=== PATIENT | male | born 1990 | race American Indian/Alaskan Native ===

== ENCOUNTER 2019-09-26 14:58 | Inpatient (IN) | payer OTHER ==
--- NOTE | 2019-09-26 17:21 | Event Note ---
ED Screening Note ED Screening Note: states he went to the hospital in june and was diagnosed with PNA last week began have productive cough no fever mild SOB +congestion no PMHx no allergies to meds +smoker, 1-2 cigarettes a day no ETOH +marijuana This initial assessment/diagnostic orders/clinical plan/treatment(s) is/are subject to change based on patients health status, clinical progression and re- assessment by fellow clinical providers in the ED. Further treatment and workup at subsequent clinical providers discretion. Patient/guardian urged not to elope from the ED as their condition may be serious if not clinically assessed and managed. Initial orders include: CXR
--- NOTE | 2019-09-26 19:25 | XRay Report ---
CHEST 2 VIEWS 1858 INDICATION / CLINICAL INFORMATION: productive cough for a week COMPARISON: None available. FINDINGS: SUPPORT DEVICES: None. HEART / MEDIASTINUM: No significant abnormality. LUNGS / PLEURA: Moderate focal area of infiltrate is seen in the right upper lobe anterior and latera l to the right hilum. There is an appearance of infiltrate either surrounding some bullous change in this region or perhaps cavitation. No air-fluid levels are seen. Mild patchy density is seen in the r ight middle lobe. There also appears to be left perihilar infiltrate. An area of apparent cavitation is seen in the far posterior aspect of the left midlung, probably in the extreme upper portion of the superior segment of the left lower lobe though possibly in the left upper lobe. This area of apparen t cavitation measures 4.5 cm in diameter and has a thick walled appearance. No air-fluid level is see n. No pleural effusions are noted. No pneumothorax. ADDITIONAL FINDINGS: No significant additional findings. IMPRESSION: Bilateral areas of infiltrate are seen with an appearance suggesting cavitation though I do not see obvious air-fluid levels to suggest lung abscess. Possibly this pattern could result from infiltrate surrounding bullous change but in this young patient without other evidence of chronic pul monary disease this would appear unlikely. Particularly on the left I believe a true cavitary lesion is much more likely. Findings raise the question of an atypical infection which could include active tuberculosis. I do not see other evidence of granulomatous disease exposure. Neoplastic disease is co nsidered far less likely in this young patient. COMMUNICATION: Time of Communication: 1818 Central daylight time Licensed Practitioner Receiving Report: Dr. Durán in the emergency department Signer Name: Sriram Butler MD Signed: 09/26/2019 7:21 PM Workstation Name: [id number]
[2019-09-26 20:21] LABS: Basophils # (Auto) 0.1 K/mm3 (0.0-0.1); Basophils % (Auto) 0.6 % (0.0-1.8); Eosinophils # (Auto) 0.1 K/mm3 (0.0-0.4); Eosinophils % (Auto) 0.8 % (0.0-4.3); Hematocrit 42.5 % (35.5-45.6); Hemoglobin 13.9 gm/dl (11.8-15.2); Lymphocytes % (Auto) 11.3 % (13.4-35.0); Mean Corpuscular HGB Conc 33 % (32-34); Mean Corpuscular Volume 84 fl (84-94); Monocytes # (Auto) 0.8 K/mm3 (0.0-0.8); Monocytes % (Auto) 9.1 % (0.0-7.3); Platelet Count 344 K/mm3 (140-440); Red Blood Count 5.08 M/mm3 (3.65-5.03); Red Cell Distribution Width 13.5 % (13.2-15.2)
--- NOTE | 2019-09-26 20:40 | Emergency Department Report ---
- General Chief Complaint: Upper Respiratory Infection Stated Complaint: COLD SYMPTOMS Time Seen by Provider: 09/26/19 17:19 Source: patient Mode of arrival: Ambulatory Limitations: No Limitations - History of Present Illness Initial Comments: 29-year-old male presents to ED with cough 4 days. Patient states he was incarcerated for 3 months and recently released from long term. He states he was diagnosed with pneumonia 3 weeks ago while in long term and received 7 days of antibiotics. Patient states a repeat chest xray was done and he was told that the pneumonia was improving. Pt was released from long term 3 days ago. States cough returned approx 4 days ago so he came to the ER. Patient denies history of TB. Reports he has been incarcerated previously as well. Patient denies any fever or chills, night sweats, or hemoptysis. MD Complaint: cough -: week(s) (3) Severity: moderate Consistency: intermittent Improves With: other (antibiotics) Worsens With: nothing Associated Symptoms: denies: fever, chills, chest pain, shortness of breath, right sweats Treatments Prior to Arrival: antibiotics - Related Data Allergies Allergy/AdvReac Type Severity Reaction Status Date / Time No Known Allergies Allergy Verified 09/26/19 15:53 ED Review of Systems ROS: Stated complaint: COLD SYMPTOMS Other details as noted in HPI Comment: All other systems reviewed and negative Constitutional: denies: chills, fever Respiratory: cough. denies: shortness of breath Cardiovascular: denies: chest pain Gastrointestinal: denies: nausea, vomiting ED Past Medical Hx - Past Medical History Previous Medical History?: No - Surgical History Past Surgical History?: Yes Additional Surgical History: pelvis fracture - Social History Smoking Status: Current Every Day Smoker ED Physical Exam - General Limitations: No Limitations ED Course Vital Signs 09/26/19 09/27/19 15:49 00:54 Temperature 98.6 F Pulse Rate 103 H 102 H Respiratory 20 19 Rate Blood Pressure 117/88 120/67 [Right] O2 Sat by Pulse 98 99 Oximetry - Consultations Consultation #1: 09/26/19 21:01 Spoke w/ Dr Rodriguez, infectious disease. Recommends rocephin and flagyl for antibiotic therapy. ED Medical Decision Making - Lab Data Result diagrams: 09/26/19 20:03 09/26/19 20:03 - Radiology Data Radiology results: report reviewed, image reviewed - Medical Decision Making 29 yo M w/ possible active TB. Pt placed in airborne precautions. I spoke w/ Dr Rodriguez, ID, who recommended rocephin, flagyl, and noncontrast chest CT. Chest CT confirms bilateral infiltrates and cavitary lesions. Labs and vitals are normal. Pt is is no resp distress, O2 sats are normal. Explained to pt need to stay for admission and he agrees. Pt will be admitted by hospitalist, Dr Galvan, for further management. - Differential Diagnosis URI, flu, pneumonia, tuberculosis Critical care attestation.: If time is entered above; I have spent that time in minutes in the direct care of this critically ill patient, excluding procedure time. ED Disposition Clinical Impression: Pneumonia Disposition: DC-09 OP ADMIT IP TO THIS HOSP Is pt being admited?: Yes Condition: Stable Time of Disposition: 01:03
[2019-09-26 20:45] LABS: Alanine Aminotransferase 6 units/L (7-56); BUN/Creatinine Ratio 14; Blood Urea Nitrogen 10 mg/dL (9-20); Calcium 9.2 mg/dL (8.4-10.2); Hemolysis Index 45
--- NOTE | 2019-09-26 20:54 | Emergency Department Report ---
- General Chief Complaint: Upper Respiratory Infection Stated Complaint: COLD SYMPTOMS Time Seen by Provider: 09/26/19 17:19 Source: patient Mode of arrival: Ambulatory Limitations: No Limitations - History of Present Illness MD Complaint: cough - Related Data Allergies Allergy/AdvReac Type Severity Reaction Status Date / Time No Known Allergies Allergy Verified 09/26/19 15:53 ED Review of Systems ROS: Stated complaint: COLD SYMPTOMS Other details as noted in HPI ED Past Medical Hx - Past Medical History Previous Medical History?: No - Surgical History Past Surgical History?: Yes Additional Surgical History: pelvis fracture - Social History Smoking Status: Current Every Day Smoker ED Physical Exam - General Limitations: No Limitations ED Course Vital Signs 09/26/19 09/26/19 09/26/19 15:49 20:31 21:01 Temperature 98.6 F Pulse Rate 103 H 88 85 Respiratory 20 19 20 Rate Blood Pressure 124/81 121/77 Blood Pressure 117/88 [Right] O2 Sat by Pulse 98 97 98 Oximetry 09/26/19 09/26/19 09/26/19 22:01 22:31 23:01 Temperature Pulse Rate 94 H 95 H 86 Respiratory 15 13 22 Rate Blood Pressure 116/69 132/92 121/79 Blood Pressure [Right] O2 Sat by Pulse 99 100 99 Oximetry 09/26/19 09/27/19 09/27/19 23:31 00:01 00:31 Temperature Pulse Rate 91 H 94 H 95 H Respiratory 26 H 21 23 Rate Blood Pressure 113/83 130/78 167/88 Blood Pressure [Right] O2 Sat by Pulse 99 94 99 Oximetry 09/27/19 09/27/19 09/27/19 00:54 01:01 01:31 Temperature Pulse Rate 102 H 95 H 94 H Respiratory 19 16 17 Rate Blood Pressure 117/69 122/66 Blood Pressure 120/67 [Right] O2 Sat by Pulse 99 95 96 Oximetry ED Medical Decision Making - Lab Data Result diagrams: 09/26/19 20:03 09/26/19 20:03 Critical care attestation.: If time is entered above; I have spent that time in minutes in the direct care of this critically ill patient, excluding procedure time. ED Disposition Clinical Impression: Pneumonia Disposition: DC- OP ADMIT IP TO THIS HOSP Condition: Stable
[2019-09-26] MEDS ORDERED: cefTRIAXone/NS 1 GM/50 ML 1 GM/50 ML BAG IV ONE (20:59)
[2019-09-26] MEDS ORDERED: metroNIDAZOLE/NS 500 MG/100 ML 500 MG/100 ML BAG IV ONE (21:00)
--- NOTE | 2019-09-26 22:18 | Cat Scan Report ---
CT CHEST WITHOUT CONTRAST INDICATION: cough, abnormal cxr CONTRAST: Without IV COMPARISON: PA and lateral chest x-ray tonight All CT scans at this location are performed using CT dose reduction for ALARA by means of automated e xposure control. FINDINGS: No significant axillary or chest wall abnormalities are seen. Visualized portions of the up per abdomen show no significant abnormalities. No mediastinal or hilar masses are obvious. No pleural effusions are seen. No pneumothorax or pneumomediastinum are noted. Bilateral areas of nodular infiltrate are seen. This is most prominently seen in the right upper lobe laterally and includes areas of cavitation as suspected on chest x-ray. The largest cavitary area in the right upper lobe has a lumen of 18 mm with a thick wall and 4 areas of cavitation are seen in th is region. Fluid infiltrate is noted around these cavitary regions and multiple nodular densities are seen extending from this area in the right upper lobe. No air-fluid levels are seen in the areas of cavitation. A similar but larger area of cavitation is seen in the superior segment of the left lower lobe as seen on chest x-ray. This cavitary area has an inner lumen diameter 2.5 cm and also does not show air-fluid level. Thickened wall is seen. This is also surrounded to a smaller degree by multipl e nodular densities. Nodular infiltrate is also seen in the lateral aspect of the left upper lobe. Th ere is some similar nodular type infiltrate medially in the left lower lobe including an area of conf luent density near the vasculature which measures 19 mm but lacks cavitation. Anterolaterally in the right middle lobe patchy mildly nodular infiltrate is seen extending to the periphery. I do not see s ignificant infiltrate in the right lower lobe. IMPRESSION: As seen on chest x-ray there are bilateral areas of infiltrate and in the right upper lob e and superior segment of the left lower lobe cavitation is indeed present. No air-fluid levels are s een in these are not thought represent lung abscesses. The infiltrate in multiple lobes bilaterally h as a nodular type of appearance and findings are strongly worrisome for an atypical infection which c ould include active tuberculosis. This possibility was discussed earlier in the evening with Dr. Durán when the chest x-ray was obtained. Neoplasia is not excluded but would be less likely in this young patient. Signer Name: Sriram Butler MD Signed: 09/26/2019 10:14 PM Workstation Name: [id number]
--- NOTE | 2019-09-26 23:46 | History and Physical Report ---
History of Present Illness History of present illness: 29-year-old man with no medical problems comes emergency room for evaluation of cough productive of brown-yellow phlegm. Was just released from care home 3 days ago. Stated was diagnosed with pneumonia 2 to 3 weeks ago in care home and received antibiotic for 7 days, he does not know the name of the antibiotic. He states that his symptoms improved but did not completely go away. Stated that all the people in the care home had the same symptoms. He denies night sweats, weight loss blood in sputum Review Of Systems: Constitutional: no weight loss, fever, chills Ears, eyes, nose, mouth and throat: no nasal congestion, no nasal discharge, no sinus pressure, blurry vision, diplopia Neck: No neck pain or rigidity. Cardiovascular: No palpitations, chest pain Respiratory:+shortness of breath, cough Gastrointestinal: No hematochezia, abdominal pain Genitourinary : no dysuria, frequency Musculoskeletal: no muscle ache , joint pain Integumentary: no rash, no pruritis Neurological: no parathesias, focal weakness Endocrine: no cold or heat intolerance, no polyuria or polydipsia Hematologic/Lymphatic: no easy bruising, no easy bleeding, no gland swelling Allergic/Immunologic: no urticaria, no angioedema. PAST MEDICAL HISTORY: None PAST SURGICAL HISTORY: pelvic fracture SOCIAL HISTORY: Denies alcohol, +tobacco, nodrugs FAMILY HISTORY: Hypertension Medications and Allergies Allergies Allergy/AdvReac Type Severity Reaction Status Date / Time No Known Allergies Allergy Verified 09/26/19 15:53 Home Medications Medication Instructions Recorded Confirmed Last Taken Type No Known Home Medications [No 09/27/19 09/27/19 Unknown History Reported Home Medications] Exam - Constitutional Vitals: Temp Pulse Resp BP Pulse Ox 98.6 F 103 H 20 117/88 98 09/26/19 15:49 09/26/19 15:49 09/26/19 15:49 09/26/19 15:49 09/26/19 15:49 Results - Labs CBC & Chem 7: 09/27/19 09:40 09/27/19 09:40 Labs: Abnormal lab results 09/26/19 09/26/19 Range/Units 20:03 20:03 RBC 5.08 H (3.65-5.03) M/mm3 MCH 27 L (28-32) pg Lymph % (Auto) 11.3 L (13.4-35.0) % [place] % (Auto) 9.1 H (0.0-7.3) % Lymph # 1.0 L (1.2-5.4) K/mm3 Seg Neutrophils % 78.2 H (40.0-70.0) % Sodium 136 L (137-145) mmol/L Creatinine 0.7 L (0.8-1.5) mg/dL ALT 6 L (7-56) units/L Total Protein 8.7 H (6.3-8.2) g/dL - Imaging and Cardiology Chest x-ray: report reviewed CT scan - chest: report reviewed Assessment and Plan Assessment Pneumonia with cavitation, rule out TB Start Rocephin, Flagyl as suggested by infectious disease Placed on isolation, check AFP, consult infectious disease DVT prophylaxis
[2019-09-27] MEDS ORDERED: ONDANSETRON 4 MG/2 ML INJ IV PRN (05:23)
[2019-09-27] MEDS: metroNIDAZOLE/NS 500 MG/100 ML 500 MG/100 ML BAG IV SCH ×3 (07:27→21:32)
[2019-09-27] MEDS: ENOXAPARIN 40 MG/0.4 ML INJ SUB-Q SCH (09:35)
[2019-09-27] MEDS: cefTRIAXone/NS 1 GM/50 ML 1 GM/50 ML BAG IV SCH (09:35)
[2019-09-27 10:14] LABS: Hematocrit 40.7 % (35.5-45.6); Hemoglobin 13.4 gm/dl (11.8-15.2); Mean Corpuscular HGB Conc 33 % (32-34); Mean Corpuscular Volume 83 fl (84-94); Platelet Count 327 K/mm3 (140-440); Red Blood Count 4.89 M/mm3 (3.65-5.03); Red Cell Distribution Width 13.4 % (13.2-15.2)
[2019-09-27 10:21] LABS: Basophils % (Auto) 0.8 % (0.0-1.8); Eosinophils # (Auto) 0.1 K/mm3 (0.0-0.4); Eosinophils % (Auto) 1.8 % (0.0-4.3); Lymphocytes # (Auto) 0.9 K/mm3 (1.2-5.4); Lymphocytes % (Auto) 15.1 % (13.4-35.0); Monocytes # (Auto) 0.6 K/mm3 (0.0-0.8); Monocytes % (Auto) 10.7 % (0.0-7.3)
[2019-09-27 10:38] LABS: BUN/Creatinine Ratio 14; Blood Urea Nitrogen 10 mg/dL (9-20); Calcium 8.7 mg/dL (8.4-10.2); Hemolysis Index 6
--- NOTE | 2019-09-27 12:59 | Progress Note ---
Assessment and Plan 1. Pneumonia with cavitation, --rule out TB Start Rocephin, Flagyl as suggested by infectious disease Placed on isolation, check AFB, consult infectious disease 2.DVT prophylaxis On Heparin and GI prophylaxis Subjective Date of service: 09/27/19 Principal diagnosis: Pna with cavity Interval history: 29-year-old man with no medical problems comes emergency room for evaluation of cough productive of brown-yellow phlegm. Was just released from skilled nursing 3 days ago. Stated was diagnosed with pneumonia 2 to 3 weeks ago in skilled nursing and received antibiotic for 7 days, he does not know the name of the antibiotic. He states that his symptoms improved but did not completely go away. Stated that all the people in the skilled nursing had the same symptoms. He denies night sweats, weight loss blood in sputum Objective - Constitutional Vitals: Vital Signs - 12hr 09/27/19 09/27/19 09/27/19 01:01 01:31 01:41 Temperature Pulse Rate 95 H 94 H 104 H Pulse Rate [ From Monitor] Respiratory 16 17 17 Rate Blood Pressure 117/69 122/66 117/69 O2 Sat by Pulse 95 96 99 Oximetry 09/27/19 09/27/19 09/27/19 01:51 01:54 02:01 Temperature Pulse Rate 92 H 100 H Pulse Rate [ 81 From Monitor] Respiratory 17 20 19 Rate Blood Pressure 118/65 116/66 O2 Sat by Pulse 100 95 96 Oximetry 09/27/19 09/27/19 09/27/19 02:11 02:21 03:00 Temperature Pulse Rate 97 H 92 H Pulse Rate [ From Monitor] Respiratory 19 21 Rate Blood Pressure 118/65 113/56 128/82 O2 Sat by Pulse 96 93 Oximetry 09/27/19 09/27/19 09/27/19 03:02 04:53 09:26 Temperature 97.3 F L 98.3 F Pulse Rate 87 85 Pulse Rate [ From Monitor] Respiratory 20 18 Rate Blood Pressure 124/82 O2 Sat by Pulse 95 97 97 Oximetry General appearance: Present: no acute distress, well-nourished - EENT Eyes: PERRL, EOM intact ENT: hearing intact, clear oral mucosa Ears: bilateral: normal - Neck Neck: supple, normal ROM - Respiratory Respiratory effort: normal Respiratory: bilateral: CTA - Breasts Breasts: normal - Cardiovascular Heart rate: 78 Rhythm: regular Heart Sounds: Present: S1 & S2. Absent: gallop, rub Extremities: pulses intact, No edema, normal color, Full ROM - Gastrointestinal General gastrointestinal: Present: soft, non-tender, non-distended, normal bowel sounds - Genitourinary Male genitourinary: normal - Integumentary Integumentary: clear, warm, dry - Musculoskeletal Musculoskeletal: 1, strength equal bilaterally - Neurologic Neurologic: moves all extremities - Psychiatric Psychiatric: memory intact, appropriate mood/affect, intact judgment & insight - Allied health notes Allied health notes reviewed: nursing, case management - Labs CBC & Chem 7: 09/27/19 09:40 09/27/19 09:40 Labs: Abnormal lab results 09/26/19 09/26/19 09/27/19 Range/Units 20:03 20:03 09:40 RBC 5.08 H (3.65-5.03) M/mm3 MCV 83 L (84-94) fl MCH 27 L 27 L (28-32) pg Lymph % (Auto) 11.3 L (13.4-35.0) % [place] % (Auto) 9.1 H 10.7 H (0.0-7.3) % Lymph # 1.0 L 0.9 L (1.2-5.4) K/mm3 Seg Neutrophils % 78.2 H 71.6 H (40.0-70.0) % Sodium 136 L (137-145) mmol/L Creatinine 0.7 L (0.8-1.5) mg/dL Glucose (75-100) mg/dL ALT 6 L (7-56) units/L Total Protein 8.7 H (6.3-8.2) g/dL 09/27/19 Range/Units 09:40 RBC (3.65-5.03) M/mm3 MCV (84-94) fl MCH (28-32) pg Lymph % (Auto) (13.4-35.0) % [place] % (Auto) (0.0-7.3) % Lymph # (1.2-5.4) K/mm3 Seg Neutrophils % (40.0-70.0) % Sodium (137-145) mmol/L Creatinine 0.7 L (0.8-1.5) mg/dL Glucose 160 H (75-100) mg/dL ALT (7-56) units/L Total Protein (6.3-8.2) g/dL
[2019-09-27] MEDS ORDERED: HEPARIN 5,000 UNIT/1 ML VIAL SUB-Q SCH (13:15)
--- NOTE | 2019-09-27 15:25 | Consultation ---
History of Present Illness - Reason for Consult Consult date: 09/27/19 cavitary pneumonia Requesting physician: RAJAN RIBEIRO - History of Present Illness The patient is a 29-year-old male with no significant past medical history, recent incarceration came into the emergency room yesterday with complaints of cough along with brown sputum production for the last 3-4 days. Has any fever or chills. He reports a recent diagnosis of pneumonia while he was incarcerated sometime in June 2019. Treated with antibiotics and started feeling better after that. Has any weight loss. ID was consulted for additional work up. Started on Ceftriaxone and Flagyl. Does smoke cigarettes, also smokes marijuana. Denies any IV drug use. Denies any alcohol use. Review of Systems: General: no fevers,chills or rigors HEENT: no new visual disturbance Respiratory: cough, sputum and mild shortness of breath Cardiovascular: No chest pain, syncope Gastrointestinal: No nausea, vomiting or diarrhea Genitourinary: No dysuria or hematuria Musculoskeletal: No new or worsening neck pain or back pain Neurologic: No headaches, seizures Hematologic: No easy bruising or bleeding Endocrine: No night sweats or acute weight loss Skin: negative for rash, jaundice Psychiatric: No suicidal or homicidal ideation Medications and Allergies Allergies Allergy/AdvReac Type Severity Reaction Status Date / Time No Known Allergies Allergy Verified 09/26/19 15:53 Home Medications Medication Instructions Recorded Confirmed Last Taken Type No Known Home Medications [No 09/27/19 09/27/19 Unknown History Reported Home Medications] Active Meds: Active Medications Acetaminophen (Tylenol) 650 mg PO Q4H PRN PRN Reason: Pain MILD(1-3)/Fever >100.5/JAIMES Enoxaparin Sodium (Enoxaparin) 40 mg SUB-Q QDAY [facility] Last Admin: 09/27/19 09:35 Dose: 40 mg Documented by: Metronidazole (Flagyl 500 Mg/100 Ml) 500 mg in 100 mls @ 100 mls/hr IV Q8HR S ; Protocol Last Admin: 09/27/19 13:25 Dose: 100 mls/hr Documented by: Ceftriaxone Sodium (Rocephin/Ns 1 Gm/50 Ml) 1 gm in 50 mls @ 100 mls/hr IV Q24HR [facility]; Protocol Last Admin: 09/27/19 09:35 Dose: 100 mls/hr Documented by: Ondansetron HCl (Zofran) 4 mg IV Q4H PRN PRN Reason: Nausea And Vomiting Sodium Chloride (Sodium Chloride Flush Syringe 10 Ml) 10 ml IV BID [place] Last Admin: 09/27/19 09:35 Dose: 10 ml Documented by: Sodium Chloride (Sodium Chloride Flush Syringe 10 Ml) 10 ml IV PRN PRN PRN Reason: LINE FLUSH Physical Examination - Physical Exam Narrative exam: Physical Exam: Constitutional: Alert, cooperative. No acute distress Head, Ears, Nose: Normocephalic, atraumatic. External ears, nose normal Eyes: Conjunctivae/corneas clear. No icterus. No ptosis. Neck: Supple, no meningeal signs Oral: dentition fair, no thrush Cardiovascular: S1, S2 normal. Respiratory: Good air entry, clear to auscultation bilaterally GI: Soft, non-tender; bowel sounds normal. No peritoneal signs Musculoskeletal: No pedal edema, no cyanosis. Skin: No rash or abscess Hem/Lymphatic: No palpable cervical or supraclavicular nodes. No lymphangitis Psych: Mood ok. Affect normal Neurological: Awake, alert, oriented. No gross abnormality - Constitutional Vitals: Vital Signs Temp Pulse Resp BP Pulse Ox 97.1 F L 82 18 117/59 98 09/27/19 11:52 09/27/19 11:52 09/27/19 11:52 09/27/19 11:52 09/27/19 11:52 Temperature -Last 24 Hours Temperature 97.1 F Temperature 98.3 F Temperature 97.3 F Temperature 98.6 F Results - Labs CBC & Chem 7: 09/27/19 09:40 09/27/19 09:40 Labs: Abnormal lab results 09/26/19 09/26/19 09/27/19 Range/Units 20:03 20:03 09:40 RBC 5.08 H (3.65-5.03) M/mm3 MCV 83 L (84-94) fl MCH 27 L 27 L (28-32) pg Lymph % (Auto) 11.3 L (13.4-35.0) % [place] % (Auto) 9.1 H 10.7 H (0.0-7.3) % Lymph # 1.0 L 0.9 L (1.2-5.4) K/mm3 Seg Neutrophils % 78.2 H 71.6 H (40.0-70.0) % Sodium 136 L (137-145) mmol/L Creatinine 0.7 L (0.8-1.5) mg/dL Glucose (75-100) mg/dL ALT 6 L (7-56) units/L Total Protein 8.7 H (6.3-8.2) g/dL 09/27/19 Range/Units 09:40 RBC (3.65-5.03) M/mm3 MCV (84-94) fl MCH (28-32) pg Lymph % (Auto) (13.4-35.0) % [place] % (Auto) (0.0-7.3) % Lymph # (1.2-5.4) K/mm3 Seg Neutrophils % (40.0-70.0) % Sodium (137-145) mmol/L Creatinine 0.7 L (0.8-1.5) mg/dL Glucose 160 H (75-100) mg/dL ALT (7-56) units/L Total Protein (6.3-8.2) g/dL - Imaging and Cardiology Chest x-ray: report reviewed, image reviewed (cavitary lesions) CT scan - chest: report reviewed, image reviewed (b/l cavitary infiltrates) Assessment and Plan Cultures: 09/26/2019 blood culture: In process A/P: 29-year-old male with no significant past medical history, recent incarceration admitted with: #Bilateral cavitary pneumonia: Patient recently incarcerated with recent pneumonia. Findings not typical of septic emboli but follow blood cultures. Rule out TB. Dentition is fair, no h/o alcohol abuse to suggest aspiration and lung abscess. Does smoke cigarettes, also smokes marijuana. Denies any IV drug use. Recs: Airborne isolation Sputum culture AFB smear and culture 3 TB IGRA empiric Ceftriaxone and Flagyl for now f/u blood cultures TTE ordered Angela Rodriguez MD, FACP [facility] ([facility] C: [phone] O: [phone] F: [phone]
[2019-09-27] MEDS ORDERED: guaiFENesin 100 MG/5 ML ORAL LIQD PO PRN (22:15)
[2019-09-28] MEDS: metroNIDAZOLE/NS 500 MG/100 ML 500 MG/100 ML BAG IV SCH ×2 (05:20→18:00)
[2019-09-28] MEDS: ENOXAPARIN 40 MG/0.4 ML INJ SUB-Q SCH (11:05)
[2019-09-28] MEDS: cefTRIAXone/NS 1 GM/50 ML 1 GM/50 ML BAG IV SCH (11:05)
--- NOTE | 2019-09-28 12:52 | Progress Note ---
Assessment and Plan Cultures: 09/26/2019 blood culture: no growth thus far A/P: 29-year-old male with no significant past medical history, recent incarceration admitted with: #Bilateral cavitary pneumonia: Patient recently incarcerated with recent pneumonia. Findings not typical of septic emboli but follow blood cultures. Rule out TB. Dentition is fair, no h/o alcohol abuse to suggest aspiration and lung abscess. Does smoke cigarettes, also smokes marijuana. Denies any IV drug use. TTE unremarkable. Recs: continue airborne isolation f/u sputum culture f/u AFB smear and culture 3 TB IGRA ordered but not collected yet continue empiric Ceftriaxone and Flagyl for now Angela Rodriguez MD, FACP [facility] ([facility] C: [phone] O: [phone] F: [phone] Subjective Date of service: 09/28/19 Principal diagnosis: Pna with cavity Interval history: No fever. no cough. Feels well. Objective - Exam Narrative Exam: Physical Exam: Constitutional: Alert, cooperative. No acute distress Head, Ears, Nose: Normocephalic, atraumatic. External ears, nose normal Eyes: Conjunctivae/corneas clear. No icterus. No ptosis. Neck: Supple, no meningeal signs Cardiovascular: S1, S2 normal. Respiratory: Good air entry, clear to auscultation bilaterally GI: Soft, non-tender; bowel sounds normal. No peritoneal signs Musculoskeletal: No pedal edema, no cyanosis. Skin: No rash or abscess Hem/Lymphatic: No palpable cervical or supraclavicular nodes. No lymphangitis Psych: Mood ok. Affect normal Neurological: Awake, alert, oriented. No gross abnormality - Constitutional Vitals: Vital Signs Temp Pulse Resp BP Pulse Ox 98.1 F 73 18 122/71 94 09/28/19 05:41 09/28/19 05:41 09/28/19 05:41 09/28/19 05:41 09/28/19 05:41 Temperature -Last 24 Hours Temperature 98.1 F Temperature 98.6 F Temperature 97.5 F - Labs CBC & Chem 7: 09/27/19 09:40 09/27/19 09:40
[2019-09-28] MEDS: ETHAMBUTOL 400 MG TAB PO SCH (17:57)
[2019-09-28] MEDS: ISONIAZID 300 MG TAB PO SCH (17:58)
[2019-09-28] MEDS: PYRIDOXINE 50 MG TAB PO SCH (17:59)
[2019-09-28] MEDS: PYRAZINAMIDE 500 MG TAB PO SCH (17:59)
--- NOTE | 2019-09-28 18:17 | Progress Note ---
Assessment and Plan Assessment and plan: 29-year-old man with no medical problems comes emergency room for evaluation of cough productive of brown-yellow phlegm. [facility]. Stated was diagnosed with pneumonia 2 to 3 weeks ago in [facility] and received antibiotic for 7 days, he does not know the name of the antibiotic. He states that his symptoms improved but did not completely go away. Stated that all the people in the [facility] had the same symptoms. He denies night sweats, weight loss blood in sputum 1. Pneumonia with cavitation, --rule out TB called by Micro about positve AFB Discussed with ID will Start TB meds Patient moved to Airborne isolation room. TB IGRA Rocephin, Flagyl as suggested by infectious disease Placed on isolation, check AFB, consult infectious disease 2.DVT prophylaxis On Heparin and GI prophylaxis History Interval history: Patient seen and examined, resting comfortable, no new complaints Hospitalist Physical - Physical exam Narrative exam: VITAL SIGNS: Reviewed. GENERAL: The patient appears normally developed, Vital signs as documented. HEAD: No signs of head trauma. EYES: Pupils are equal. Extraocular motions intact. EARS: Hearing grossly intact. MOUTH: Oropharynx is normal. NECK: No adenopathy, no JVD. CHEST: Chest with clear breath sounds bilaterally. No wheezes, rales, or rhonchi. CARDIAC: Regular rate and rhythm. S1 and S2, without murmurs, gallops, or rubs. VASCULAR: No Edema. Peripheral pulses normal and equal in all extremities. ABDOMEN: Soft, non tender and non distended. No rebound or guarding, and no masses palpated. Bowel Sounds normal. MUSCULOSKELETAL: Good range of motion of all major joints. Extremities without clubbing, cyanosis or edema. NEUROLOGIC EXAM: Alert and oriented x 3 No focal sensory or strength deficits. Speech normal. Follows commands. PSYCHIATRIC: Mood normal. SKIN: detial exam as documented in skin assessment - Constitutional Vitals: Temp Pulse Resp BP Pulse Ox 97.4 F L 72 22 125/84 96 09/28/19 16:50 09/28/19 16:50 09/28/19 16:50 09/28/19 16:50 09/28/19 16:50 General appearance: Present: no acute distress, well-nourished Results - Labs CBC & Chem 7: 09/27/19 09:40 09/27/19 09:40 Labs: Laboratory Last Values WBC 5.4 K/mm3 (4.5-11.0) 09/27/19 09:40 RBC 4.89 M/mm3 (3.65-5.03) 09/27/19 09:40 Hgb 13.4 gm/dl (11.8-15.2) 09/27/19 09:40 Hct 40.7 % (35.5-45.6) 09/27/19 09:40 MCV 83 fl (84-94) L 09/27/19 09:40 MCH 27 pg (28-32) L 09/27/19 09:40 MCHC 33 % (32-34) 09/27/19 09:40 RDW 13.4 % (13.2-15.2) 09/27/19 09:40 Plt Count 327 K/mm3 (140-440) 09/27/19 09:40 Lymph % (Auto) 15.1 % (13.4-35.0) 09/27/19 09:40 [place] % (Auto) 10.7 % (0.0-7.3) H 09/27/19 09:40 Eos % (Auto) 1.8 % (0.0-4.3) 09/27/19 09:40 Baso % (Auto) 0.8 % (0.0-1.8) 09/27/19 09:40 Lymph # 0.9 K/mm3 (1.2-5.4) L 09/27/19 09:40 [place] # 0.6 K/mm3 (0.0-0.8) 09/27/19 09:40 Eos # 0.1 K/mm3 (0.0-0.4) 09/27/19 09:40 Baso # 0.0 K/mm3 (0.0-0.1) 09/27/19 09:40 Seg Neutrophils % 71.6 % (40.0-70.0) H 09/27/19 09:40 Seg Neutrophils # 4.1 K/mm3 (1.8-7.7) 09/27/19 09:40 Sodium 138 mmol/L (137-145) 09/27/19 09:40 Potassium 4.4 mmol/L (3.6-5.0) 01/01/20 09:40 Chloride 101.2 mmol/L (98-107) 09/27/19 09:40 Carbon Dioxide 23 mmol/L (22-30) 09/27/19 09:40 Anion Gap 18 mmol/L 09/27/19 09:40 BUN 10 mg/dL (9-20) 09/27/19 09:40 Creatinine 0.7 mg/dL (0.8-1.5) L 09/27/19 09:40 Estimated GFR > 60 ml/min 09/27/19 09:40 BUN/Creatinine Ratio 14 % 09/27/19 09:40 Glucose 160 mg/dL (75-100) H 09/27/19 09:40 Calcium 8.7 mg/dL (8.4-10.2) 09/27/19 09:40 Total Bilirubin 0.20 mg/dL (0.1-1.2) 09/26/19 20:03 AST 15 units/L (5-40) 09/26/19 20:03 ALT 6 units/L (7-56) L 09/26/19 20:03 Alkaline Phosphatase 66 units/L (35-129) 09/26/19 20:03 Total Protein 8.7 g/dL (6.3-8.2) H 09/26/19 20:03 Albumin 4.0 g/dL (3.9-5) 09/26/19 20:03 Albumin/Globulin Ratio 0.9 % 09/26/19 20:03 AFB Identification 09/27/19 09:40 Active Medications - Current Medications Current Medications: Generic Name Dose Route Start Last Admin Trade Name Freq PRN Reason Stop Dose Admin Acetaminophen 650 mg 09/27/19 05:23 Tylenol PO Q4H PRN Pain MILD(1-3)/Fever >100.5/JAIMES Enoxaparin Sodium 40 mg 09/27/19 10:00 09/28/19 11:05 Enoxaparin SUB-Q 40 mg QDAY CARLTON Administration Ethambutol HCl 1,600 mg 09/28/19 15:00 09/28/19 17:57 Myambutol PO 1,600 mg QDAY CARLTON Administration Guaifenesin 200 mg 09/27/19 22:15 09/27/19 22:57 Robitussin PO 200 mg Q4H PRN Administration Cough Isoniazid 300 mg 09/28/19 15:00 09/28/19 17:58 Isoniazid PO 300 mg QDAY CARLTON Administration Ondansetron HCl 4 mg 09/27/19 05:23 Zofran IV Q4H PRN Nausea And Vomiting Pyrazinamide 1,500 mg 09/28/19 15:00 09/28/19 17:59 Pyrazinamide PO 1,500 mg QDAY CARLTON Administration Pyridoxine HCl 50 mg 09/28/19 15:00 09/28/19 17:59 Vitamin B-6 PO 50 mg QDAY CARLTON Administration Rifampin 600 mg 09/29/19 10:00 Rifadin PO QDAY CARLTON Sodium Chloride 10 ml 09/27/19 10:00 09/28/19 11:06 Sodium Chloride Flush Syringe 10 Ml IV 10 ml BID CARLTON Administration Sodium Chloride 10 ml 09/27/19 05:23 Sodium Chloride Flush Syringe 10 Ml IV PRN PRN LINE FLUSH Nutrition/Malnutrition Assess - Dietary Evaluation Nutrition/Malnutrition Findings: Nutrition Notes Start: 09/27/19 10:52 Freq: Status: Active Protocol: Document 09/27/19 10:52 DANO (Rec: 09/27/19 10:53 DANO [id number] [email or web address]) Nutrition Notes 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 Will assess upon further consult or LOS.
[2019-09-29] MEDS: ACETAMINOPHEN 325 MG TAB PO PRN (02:29)
[2019-09-29] MEDS: PYRIDOXINE 50 MG TAB PO SCH (10:44)
[2019-09-29] MEDS: ENOXAPARIN 40 MG/0.4 ML INJ SUB-Q SCH (10:44)
[2019-09-29] MEDS: ISONIAZID 300 MG TAB PO SCH (10:44)
[2019-09-29] MEDS: PYRAZINAMIDE 500 MG TAB PO SCH (10:44)
[2019-09-29] MEDS: ETHAMBUTOL 400 MG TAB PO SCH (10:45)
[2019-09-29] MEDS: rifAMPin 300 MG CAP PO SCH (10:45)
--- NOTE | 2019-09-29 13:52 | Progress Note ---
Assessment and Plan Cultures: 09/26/2019 blood culture: no growth thus far A/P: 29-year-old male with no significant past medical history, recent incarceration admitted with: #Bilateral cavitary pneumonia: Patient recently incarcerated with recent pneumonia. AFB smear 2 of 2 positive for acid fast bacilli. At risk of TB. 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 Doing well. Cough +. Health Department Neurology Physician at bedside. Objective - Exam Narrative Exam: Physical Exam: Constitutional: Alert, cooperative. No acute distress Head, Ears, Nose: Normocephalic, atraumatic. External ears, nose normal Eyes: Conjunctivae/corneas clear. No icterus. No ptosis. Neck: Supple, no meningeal signs Cardiovascular: S1, S2 normal Respiratory: Good air entry, clear to auscultation bilaterally GI: Soft, non-tender; bowel sounds normal. No peritoneal signs Musculoskeletal: No pedal edema, no cyanosis. Skin: No rash or abscess Hem/Lymphatic: No palpable cervical or supraclavicular nodes. No lymphangitis Psych: Mood ok. Affect normal Neurological: Awake, alert, oriented. No gross abnormality - Constitutional Vitals: Vital Signs Temp Pulse Resp BP Pulse Ox 98.0 F 69 18 124/85 97 09/29/19 11:43 09/29/19 11:43 09/29/19 11:43 09/29/19 11:43 09/29/19 11:43 Temperature -Last 24 Hours Temperature 98.0 F Temperature 97.4 F Temperature 98.3 F Temperature 97.4 F - Labs CBC & Chem 7: 09/27/19 09:40 09/27/19 09:40
--- NOTE | 2019-09-29 18:22 | Progress Note ---
Subjective Date of service: 09/29/19 Principal diagnosis: Pna with cavity Interval history: 29-year-old man with no medical problems comes emergency room for evaluation of cough productive of brown-yellow phlegm. Was just released from [facility] 3 days ago. Stated was diagnosed with pneumonia 2 to 3 weeks ago in [facility] and received antibiotic for 7 days, he does not know the name of the antibiotic. He states that his symptoms improved but did not completely go away. Stated that all the people in the [facility] had the same symptoms. He denies night sweats, weight loss blood in sputum 1. Pneumonia with cavitation, --rule out TB Sputum for AFB positive in 2 of to sputum specimens Patient moved to Airborne isolation room. TB IGRA Placed on isolation, check AFB, consult infectious disease started on RIPE plus B6 ID note reviewed and appreciated Patient can be discharged on Wednesday after he receives the anti-TB treatment and he must go to [facility] on Wednesday [facility] will take over the patient from Wednesday. He needs to go with a mask 2.DVT prophylaxis On Heparin and GI prophylaxis History Interval history: Patient seen and examined, resting comfortable, no new complaints Hospitalist Physical - Physical exam Narrative exam: VITAL SIGNS: Reviewed. GENERAL: The patient appears normally developed, Vital signs as documented. HEAD: No signs of head trauma. EYES: Pupils are equal. Extraocular motions intact. EARS: Hearing grossly intact. MOUTH: Oropharynx is normal. NECK: No adenopathy, no JVD. CHEST: Chest with clear breath sounds bilaterally. No wheezes, rales, or rhonchi. CARDIAC: Regular rate and rhythm. S1 and S2, without murmurs, gallops, or rubs. VASCULAR: No Edema. Peripheral pulses normal and equal in all extremities. ABDOMEN: Soft, non tender and non distended. No rebound or guarding, and no masses palpated. Bowel Sounds normal. MUSCULOSKELETAL: Good range of motion of all major joints. Extremities without clubbing, cyanosis or edema. NEUROLOGIC EXAM: Alert and oriented x 3 No focal sensory or strength deficits. Speech normal. Follows commands. PSYCHIATRIC: Mood normal. SKIN: detial exam as documented in skin assessment Objective - Constitutional Vitals: Vital Signs - 12hr 09/29/19 09/29/19 11:43 17:24 Temperature 98.0 F 98.0 F Pulse Rate 69 93 H Respiratory 18 18 Rate Blood Pressure 124/85 136/84 O2 Sat by Pulse 97 92 Oximetry - Labs CBC & Chem 7: 09/27/19 09:40 09/27/19 09:40
[2019-09-30] MEDS: ACETAMINOPHEN 325 MG TAB PO PRN (00:53)
[2019-09-30] MEDS: ENOXAPARIN 40 MG/0.4 ML INJ SUB-Q SCH (11:11)
[2019-09-30] MEDS: rifAMPin 300 MG CAP PO SCH (11:12)
[2019-09-30] MEDS: ETHAMBUTOL 400 MG TAB PO SCH (11:12)
[2019-09-30] MEDS: ISONIAZID 300 MG TAB PO SCH (11:12)
[2019-09-30] MEDS: PYRAZINAMIDE 500 MG TAB PO SCH (11:12)
[2019-09-30] MEDS: PYRIDOXINE 50 MG TAB PO SCH (11:13)
--- NOTE | 2019-09-30 13:08 | Progress Note ---
Subjective Date of service: 09/30/19 Principal diagnosis: Pna with cavity Interval history: 9-year-old man with no medical problems comes emergency room for evaluation of cough productive of brown-yellow phlegm. Was just released from [facility] 3 days ago. Stated was diagnosed with pneumonia 2 to 3 weeks ago in [facility] and received antibiotic for 7 days, he does not know the name of the antibiotic. He states that his symptoms improved but did not completely go away. Stated that all the people in the [facility] had the same symptoms. He denies night sweats, weight loss blood in sputum 1. Pneumonia with cavitation, --rule out TB Sputum for AFB positive in 2 of to sputum specimens Patient moved to Airborne isolation room. TB IGRA Placed on isolation, check AFB, consult infectious disease started on RIPE plus B6 ID note reviewed and appreciated Patient can be discharged on Wednesday after he receives the anti-TB treatment and he must go to [facility] on Wednesday [facility] will take over the patient from Wednesday. He needs to go with a mask 2.DVT prophylaxis On Heparin and GI prophylaxis History Interval history: Patient seen and examined, resting comfortable, no new complaints Hospitalist Physical - Physical exam Narrative exam: VITAL SIGNS: Reviewed. GENERAL: The patient appears normally developed, Vital signs as documented. HEAD: No signs of head trauma. EYES: Pupils are equal. Extraocular motions intact. MOUTH: Oropharynx is normal. NECK: No adenopathy, no JVD. CHEST: Chest with clear breath sounds bilaterally. No wheezes, rales, or rhonchi. CARDIAC: Regular rate and rhythm. VASCULAR: No Edema. Peripheral pulses normal and equal in all extremities. ABDOMEN: Soft, non tender and non distended. MUSCULOSKELETAL: Good range of motion of all major joints. NEUROLOGIC EXAM: Alert and oriented x 3 No focal sensory or strength deficits. PSYCHIATRIC: Mood normal. SKIN: detial exam as documented in skin assessment Objective - Constitutional Vitals: Vital Signs - 12hr 09/30/19 04:30 Temperature 98.0 F Respiratory 16 Rate Blood Pressure 116/71 - Labs CBC & Chem 7: 09/27/19 09:40 09/27/19 09:40
[2019-10-01] MEDS: PYRIDOXINE 50 MG TAB PO SCH (10:02)
[2019-10-01] MEDS: ENOXAPARIN 40 MG/0.4 ML INJ SUB-Q SCH ×2 (10:02→10:08)
[2019-10-01] MEDS: PYRAZINAMIDE 500 MG TAB PO SCH (10:02)
[2019-10-01] MEDS: ETHAMBUTOL 400 MG TAB PO SCH (10:02)
[2019-10-01] MEDS: rifAMPin 300 MG CAP PO SCH (10:02)
[2019-10-01] MEDS: ISONIAZID 300 MG TAB PO SCH (10:03)
[2019-10-01 12:06] VITALS: BP 138/78
--- NOTE | 2019-10-01 14:00 | Progress Note ---
Assessment and Plan 1. b/l Pneumonia with cavitation Sputum for AFB positive in 2 of to sputum specimens Patient moved to Airborne isolation room. Placed on isolation, consulted infectious disease started on RIPE plus B6 ID note reviewed and appreciated Patient can be discharged on Wednesday after he receives the anti-TB treatment and he must go to [facility] on Wednesday [facility] will take over the patient from Wednesday. He needs to go with a mask 2.DVT prophylaxis On Heparin and GI prophylaxis brief History 9-year-old man with no medical problems comes emergency room for evaluation of cough productive of brown-yellow phlegm. [facility] just [facility] 3 days ago. Stated was diagnosed with pneumonia 2 to 3 weeks ago in detention and received antibiotic for 7 days, he does not know the name of the antibiotic. He states that his symptoms improved but did not completely go away. Stated that all the people in the detention had the same symptoms. He denies night sweats, weight loss blood in sputum Hospitalist Physical VITAL SIGNS: Reviewed. GENERAL: The patient appears normally developed, Vital signs as documented. HEAD: No signs of head trauma. EYES: Pupils are equal. Extraocular motions intact. MOUTH: Oropharynx is normal. NECK: No adenopathy, no JVD. CHEST: Chest with clear breath sounds bilaterally. No wheezes, rales, or rhonchi. CARDIAC: Regular rate and rhythm. VASCULAR: No Edema. Peripheral pulses normal and equal in all extremities. ABDOMEN: Soft, non tender and non distended. MUSCULOSKELETAL: Good range of motion of all major joints. NEUROLOGIC EXAM: Alert and oriented x 3 No focal sensory or strength deficits. PSYCHIATRIC: Mood normal. SKIN: detial exam as documented in skin assessment Subjective Date of service: 10/01/19 Principal diagnosis: Pna with cavity Objective - Constitutional Vitals: Vital Signs - 12hr 10/01/19 10/01/19 10/01/19 05:28 08:28 11:31 Temperature 98.0 F 98.0 F Pulse Rate 79 Respiratory 16 16 18 Rate Blood Pressure 135/85 138/78 O2 Sat by Pulse 100 Oximetry - Labs CBC & Chem 7: 09/27/19 09:40 09/27/19 09:40
--- NOTE | 2019-10-01 15:06 | Discharge Summary ---
Providers - Providers Date of Admission: 09/26/19 23:45 Date of discharge: 10/01/19 Attending physician: JEANNINE TOURE 09/26/19 21:46 Consult to Physician [CONS] Stat Comment: Dr. Durán spoke with Dr. Edge @ 2056 Consulting Provider: DANIELLE EDGE Physician Instructions: Reason For Exam: poss TB 09/28/19 14:30 Consult to Case Management [CONS] Routine Services Needed at Discharge: Other Notified:: copy left for CM Comment:: [facility] for TB treatment Additional Physician Instructions: Please contact patient's [facility] to take over his TB treatment for DOT (directly observed therapy) Primary care physician: BOX STACKER Hospitalization Condition: Stable Hospital course: 9-year-old man with no medical problems comes emergency room for evaluation of cough productive of brown-yellow phlegm. Was just released from [facility] days ago. Stated was diagnosed with pneumonia 2 to 3 weeks ago in [facility] and received antibiotic for 7 days, he does not know the name of the antibiotic. He states that his symptoms improved but did not completely go away. Stated that all the people in the [facility] had the same symptoms. He denies night sweats, weight loss blood in sputum. Discharge diagnosis: 1. b/l Pneumonia with cavitation Sputum for AFB positive in 2 of to sputum specimens Patient moved to Airborne isolation room. Placed on isolation, consulted infectious disease started on RIPE plus B6 ID note reviewed and appreciated Patient can be discharged today after he receives the anti-TB treatment. [facility] will see the patient at his residence with his medications Wednesday morning. He needs to go with a mask. 2.DVT prophylaxis On Heparin and GI prophylaxis Hospitalist Physical VITAL SIGNS: Reviewed. GENERAL: The patient appears normally developed, Vital signs as documented. HEAD: No signs of head trauma. EYES: Pupils are equal. Extraocular motions intact. MOUTH: Oropharynx is normal. NECK: No adenopathy, no JVD. CHEST: Chest with clear breath sounds bilaterally. No wheezes, rales, or rhonchi. CARDIAC: Regular rate and rhythm. VASCULAR: No Edema. Peripheral pulses normal and equal in all extremities. ABDOMEN: Soft, non tender and non distended. MUSCULOSKELETAL: Good range of motion of all major joints. NEUROLOGIC EXAM: Alert and oriented x 3 No focal sensory or strength deficits. PSYCHIATRIC: Mood normal. SKIN: detial exam as documented in skin assessment Disposition: DC-01 TO HOME OR SELFCARE Time spent for discharge: 34 minutes Core Measure Documentation - Palliative Care Palliative Care/ Comfort Measures: Not Applicable - Core Measures Any of the following diagnoses?: none Exam - Constitutional Vitals: Temp Pulse Resp BP Pulse Ox 98.0 F 79 18 138/78 100 10/01/19 11:31 10/01/19 11:31 10/01/19 11:31 10/01/19 11:31 10/01/19 11:31 Plan Activity: advance as tolerated Weight Bearing Status: Weight Bear as Tolerated Diet: low fat Additional Instructions: f/u with health department to receive your TB meds. use mask till clears by health department. Follow up with: OSCAR SPANN MD [Primary Care Provider] - 7 Days DANIELLE EDGE MD [Staff Physician] - 7 Days
== END 2019-10-01 15:36 | disposition home or self-care (01) | DRG 195 ==
LOC: ED 14:58 → 3A 23:45
PROVIDERS: ADMIT Internal Medicine; ATTEND Internal Medicine
DX: J18.9 Pneumonia, unspecified organism (principal); F17.210 Nicotine dependence, cigarettes, uncomplicated; Z82.49 Family history of ischemic heart disease and other diseases of the circulatory system
CPT/HCPCS: 36415; 71046; 71250; 80048; 80053; 82164; 85025; 86689; 87040; 87205; 88112; 88312; 93306; 96374; G0378; J0696; J1650

== ENCOUNTER 2020-10-20 01:57 | Inpatient (IN) | payer OTHER ==
--- NOTE | 2020-10-20 03:42 | Event Note ---
ED Screening Note Date of service: 10/20/20 Time: 03:40 ED Screening Note: This initial assessment/diagnostic orders/clinical plan/treatment(s) is/are subject to change based on patients health status, clinical progression and re- assessment by fellow clinical providers in the ED. Further treatment and workup at subsequent clinical providers discretion. Patient/guardian urged not to elope from the ED as their condition may be serious if not clinically assessed and managed. Initial orders include: 30-year-old male complaining of right lower quadrant abdominal pain off-and-on x1 month. The last 2 days his pain has intensified where it is constant right lower quadrant pain associated with couple episodes of vomiting this morning. He denies any fever. His last bowel movement was today. He denies chest pain shortness of breath no coughing no upper respiratory symptoms. Pain is a 9/10 and constant. Patient in no acute distress
[2020-10-20 03:50] LABS: Basophils # (Auto) 0.1 K/mm3 (0.0-0.1); Basophils % (Auto) 0.5 % (0.0-1.8); Eosinophils # (Auto) 0.1 K/mm3 (0.0-0.4); Eosinophils % (Auto) 0.5 % (0.0-4.3); Hemoglobin 11.1 gm/dl (11.8-15.2); Lymphocytes # (Auto) 0.6 K/mm3 (1.2-5.4); Lymphocytes % (Auto) 5.1 % (13.4-35.0); Monocytes # (Auto) 1.4 K/mm3 (0.0-0.8); Monocytes % (Auto) 11.9 % (0.0-7.3)
[2020-10-20 04:00] LABS: Hematocrit 34.3 % (35.5-45.6); Mean Corpuscular HGB Conc 33 % (32-34); Mean Corpuscular Volume 82 fl (84-94); Platelet Count 470 K/mm3 (140-440); Red Cell Distribution Width 15.6 % (13.2-15.2)
[2020-10-20 04:09] LABS: Alanine Aminotransferase 14 units/L (7-56); Albumin 3.6 g/dL (3.9-5); Blood Urea Nitrogen 10 mg/dL (9-20); Hemolysis Index 3
[2020-10-20 04:10] LABS: BUN/Creatinine Ratio 17
--- NOTE | 2020-10-20 06:14 | Cat Scan Report ---
CT ABDOMEN AND PELVIS WITH CONTRAST INDICATION / CLINICAL INFORMATION: RLQ ABD PAIN. TECHNIQUE: Axial CT images were obtained through the abdomen and pelvis after 100 cc Omnipaque [address] scans at this location are performed using CT dose reduction for ALARA by means of automated exposure control. COMPARISON: Chest CT Dated 09/26/2019 FINDINGS: LOWER CHEST: There is tree-in-bud type parenchymal opacity in the lower lobes. LIVER: No significant abnormality. GALLBLADDER: No significant abnormality. BILE DUCTS: No significant abnormality. PANCREAS: No significant abnormality. SPLEEN: No significant abnormality. ADRENALS: No significant abnormality. RIGHT KIDNEY and URETER: No significant abnormality. LEFT KIDNEY and URETER: No significant abnormality. STOMACH and SMALL BOWEL: There is wall thickening in the terminal ileum and in small bowel loop in th e central pelvis. COLON: There is abnormal wall thickening noted in the distal sigmoid colon proximal rectum adjacent i nflammation. APPENDIX: No significant abnormality. PERITONEUM: There is an inflammatory process in the right pelvis. There is a fluid-filled structure w hich appears to communicate with the colon. This could represent phlegmon associated with the inflame d appendix. There is wall thickening adjacent loop of small bowel. LYMPH NODES: No significant adenopathy. AORTA and ARTERIES: No significant abnormality. IVC and VEINS: No significant abnormality. URINARY BLADDER: No significant abnormality. REPRODUCTIVE ORGANS: No significant abnormality. ADDITIONAL FINDINGS: None. SKELETAL SYSTEM: Postoperative changes noted in the left acetabulum and iliac bone. IMPRESSION: 1. There is an inflammatory process in the right lower quadrant/right pelvis. There is abnormal wall thickening noted in the distal small bowel and in the cecum. There is a irregular fluid-filled struct ure which extends from the inferior tip of the cecum into the right pelvis. This measures approximate ly 8 x 4 cm and appears to communicate with the cecum. I suspect that this represents either a contai tia ruptured appendicitis with a large abscess. The possibility of mucocele of the appendix is consid ered as well. There is abnormal wall thickening and distal small bowel which is contiguous with this structure. There is also abnormal wall thickening in the distal sigmoid colon which is contiguous wit h this structure. 2. There is tree-in-bud type parenchymal opacity in the lung bases the appearance initially patient i s most suspicious for atypical infection which can include fungal infection,, MAURICIO, and tuberculosis. Signer Name: Sameer Eastman MD Signed: 10/20/2020 6:10 AM Workstation Name: [id number]
--- NOTE | 2020-10-20 07:26 | Emergency Department Report ---
Blank Doc - Documentation Documentation: I reviewed ct result of patient in waiting room. Critical finding of acute edward endicitis with possible rupture and abscess formation. I instructed nurse to bring patient back immediately for treatment.
[2020-10-20] MEDS ORDERED: PIPERACIL/TAZOBACTA 4.5/NS 100 4.5 GM/100 ML VIAL IV ONE (07:27)
[2020-10-20] MEDS ORDERED: SODIUM CHLORIDE 0.9% 1000 ML 1,000 ML IV ONE (07:27)
[2020-10-20] MEDS ORDERED: ONDANSETRON 4 MG/2 ML INJ IV ONE (07:28)
[2020-10-20] MEDS ORDERED: MORPHINE 4 MG/1 ML INJ IV ONE (07:37)
--- NOTE | 2020-10-20 07:58 | XRay Report ---
XR chest 1V ap INDICATION / CLINICAL INFORMATION: abnormal incidental finding on abd CT. COMPARISON: CT from 09/26/2019. FINDINGS: SUPPORT DEVICES: None. HEART /PULMONARY VASCULATURE: No significant abnormality. LUNGS / PLEURA: Reticular nodular opacities persist throughout the lungs, most pronounced within the upper lungs bilaterally. Bilateral upper lung cavitary lesions are improved from prior study. ADDITIONAL FINDINGS: No significant additional findings. IMPRESSION: Persistent reticulonodular and partially cavitary opacities in the upper lungs, improved from CT from 2019. Findings are consistent with reported history of tuberculosis. Signer Name: Ronal Collins MD Signed: 10/20/2020 7:54 AM Workstation Name: [id number]
--- NOTE | 2020-10-20 08:03 | Emergency Department Report ---
ED Abdominal Pain HPI - General Chief Complaint: Abdominal Pain Stated Complaint: RT SIDE ABD PAIN Time Seen by Provider: 10/20/20 07:37 Source: patient Mode of arrival: Ambulatory Limitations: No Limitations - History of Present Illness Initial Comments: 30-year-old male with a past medical history of pulmonary tuberculosis diagnosed here in September 2019 and subsequently completed course of treatment presents to the hospital with complaints of right lower quadrant pain x2 week. Patient did had episode of pain 1 month ago that spontaneously resolved. The last week patient has had intermittent right lower quadrant throbbing abdominal pain rated 5/10 intensity. Pain worse with palpation and movement. No alleviating factors. Patient had one episode of vomiting yesterday. He denies fever or previous abdominal surgeries. Patient was seen at an urgent care several days ago in [place] who suggested that he might have appendicitis that he should go to the hospital for evaluation however, patient did not come to the hospital until today. Patient does have a past medical history of tuberculosis and started treatment with subsequent follow-up here last year. He currently denies respiratory symptoms, fever, or loss of sense of taste or smell. - Related Data Previous Rx's Medication Instructions Recorded Last Taken Type Ethambutol [Myambutol] 1,600 mg PO QDAY tablet 10/01/19 Unknown Rx Isoniazid 300 mg PO QDAY tablet 10/01/19 Unknown Rx Pyrazinamide 1,500 mg PO QDAY tablet 10/01/19 Unknown Rx Pyridoxine [Vitamin B-6 50MG TAB] 50 mg PO QDAY tablet 10/01/19 Unknown Rx rifAMPin [Rifadin] 600 mg PO QDAY capsule 10/01/19 Unknown Rx Allergies Allergy/AdvReac Type Severity Reaction Status Date / Time No Known Allergies Allergy Verified 09/26/19 15:53 ED Review of Systems ROS: Stated complaint: RT SIDE ABD PAIN Other details as noted in HPI Comment: All other systems reviewed and negative ED Past Medical Hx - Past Medical History Previous Medical History?: No Hx Congestive Heart Failure: No Hx Diabetes: No Hx Asthma: No Hx COPD: No Additional medical history: History of pulmonary tuberculosis September 2019 with completion of treatment - Surgical History Past Surgical History?: Yes Additional Surgical History: pelvis fracture - Social History Smoking Status: Current Every Day Smoker Substance Use Type: Marijuana - Medications Home Medications: Home Medications Medication Instructions Recorded Confirmed Last Taken Type Ethambutol [Myambutol] 1,600 mg PO QDAY tablet 10/01/19 Unknown Rx Isoniazid 300 mg PO QDAY tablet 10/01/19 Unknown Rx Pyrazinamide 1,500 mg PO QDAY tablet 10/01/19 Unknown Rx Pyridoxine [Vitamin B-6 50MG TAB] 50 mg PO QDAY tablet 10/01/19 Unknown Rx rifAMPin [Rifadin] 600 mg PO QDAY capsule 10/01/19 Unknown Rx ED Physical Exam - General Limitations: No Limitations - Other Other exam information: General: No acute distress Head: Atraumatic Eyes: normal appearance ENT: Moist mucous membranes Neck: Normal appearance, no midline tenderness Chest: Clear to auscultation bilaterally CV: Regular rate and rhythm Abdomen: Soft, normal bowel sounds, right lower quadrant tender, nondistended, no rebound or guarding Back: Normal inspection Extremity: Normal inspection, full range of motion Neuro: Alert O x 3, no facial asymmetry, speech clear, no gross motor sensory deficit Psych: Appropriate behavior Skin: No rash ED Course Vital Signs 10/20/20 10/20/20 10/20/20 03:17 07:58 11:33 Temperature 98.4 F 97.7 F 97.7 F Pulse Rate 101 H 87 87 Respiratory 20 16 16 Rate Blood Pressure 118/72 Blood Pressure 122/75 122/75 [Left] O2 Sat by Pulse 97 99 99 Oximetry - Consultations Consultation #1: 10/20/20 08:[address] Benton neurosurgeon who suggested patient might be a candidate for CT-guided drain is instead of surgery is truly perforated abscess. He will evaluate patient and CT to determine appropriate course of therapy. ED Medical Decision Making - Lab Data Result diagrams: 10/20/20 03:34 10/20/20 03:34 Lab Results 10/20/20 10/20/20 Range/Units 03:34 03:34 WBC 11.6 H (4.5-11.0) K/mm3 RBC 4.20 (3.65-5.03) M/mm3 Hgb 11.1 L (11.8-15.2) gm/dl Hct 34.3 L (35.5-45.6) % MCV 82 L (84-94) fl MCH 27 L (28-32) pg MCHC 33 (32-34) % RDW 15.6 H (13.2-15.2) % Plt Count 470 H (140-440) K/mm3 Lymph % (Auto) 5.1 L (13.4-35.0) % [place] % (Auto) 11.9 H (0.0-7.3) % Eos % (Auto) 0.5 (0.0-4.3) % Baso % (Auto) 0.5 (0.0-1.8) % Lymph # (Auto) 0.6 L (1.2-5.4) K/mm3 [place] # (Auto) 1.4 H (0.0-0.8) K/mm3 Eos # (Auto) 0.1 (0.0-0.4) K/mm3 Baso # (Auto) 0.1 (0.0-0.1) K/mm3 Seg Neutrophils % 82.0 H (40.0-70.0) % Seg Neutrophils # 9.6 H (1.8-7.7) K/mm3 Sodium 132 L (137-145) mmol/L Potassium 4.4 (3.6-5.0) mmol/L Chloride 96.0 L (98-107) mmol/L Carbon Dioxide 23 (22-30) mmol/L Anion Gap 17 mmol/L BUN 10 (9-20) mg/dL Creatinine 0.6 L (0.8-1.3) mg/dL Estimated GFR > 60 ml/min BUN/Creatinine Ratio 17 % Glucose 99 (75-100) mg/dL Calcium 9.0 (8.4-10.2) mg/dL Total Bilirubin 0.30 (0.1-1.2) mg/dL AST 19 (5-40) units/L ALT 14 (7-56) units/L Alkaline Phosphatase 89 (35-129) units/L Total Protein 8.4 H (6.3-8.2) g/dL Albumin 3.6 L (3.9-5) g/dL Albumin/Globulin Ratio 0.8 % Lipase 9 L (13-60) units/L - Radiology Data Radiology results: report reviewed CT ABDOMEN AND PELVIS WITH CONTRAST INDICATION / CLINICAL INFORMATION: RLQ ABD PAIN. TECHNIQUE: Axial CT images were obtained through the abdomen and pelvis after 100 cc Omnipaque [address] scans at this location are performed using CT dose reduction for ALARA by means of automated exposure control. COMPARISON: Chest CT Dated 09/26/2019 FINDINGS: LOWER CHEST: There is tree-in-bud type parenchymal opacity in the lower lobes. LIVER: No significant abnormality. GALLBLADDER: No significant abnormality. BILE DUCTS: No significant abnormality. PANCREAS: No significant abnormality. SPLEEN: No significant abnormality. ADRENALS: No significant abnormality. RIGHT KIDNEY and URETER: No significant abnormality. LEFT KIDNEY and URETER: No significant abnormality. STOMACH and SMALL BOWEL: There is wall thickening in the terminal ileum and in small bowel loop in the central pelvis. COLON: There is abnormal wall thickening noted in the distal sigmoid colon proximal rectum adjacent inflammation. APPENDIX: No significant abnormality. PERITONEUM: There is an inflammatory process in the right pelvis. There is a fluid-filled structure which appears to communicate with the colon. This could represent phlegmon associated with the inf lamed appendix. There is wall thickening adjacent loop of small bowel. LYMPH NODES: No significant adenopathy. AORTA and ARTERIES: No significant abnormality. IVC and VEINS: No significant abnormality. URINARY BLADDER: No significant abnormality. REPRODUCTIVE ORGANS: No significant abnormality. ADDITIONAL FINDINGS: None. SKELETAL SYSTEM: Postoperative changes noted in the left acetabulum and iliac bone. IMPRESSION: 1. There is an inflammatory process in the right lower quadrant/right pelvis. There is abnormal wall thickening noted in the distal small bowel and in the cecum. There is a irregular fluid-filled structure which extends from the inferior tip of the cecum into the right pelvis. This measures approximately 8 x 4 cm and appears to communicate with the cecum. I suspect that this represents either a contained ruptured appendicitis with a large abscess. The possibility of mucocele of the appendix is considered as well. There is abnormal wall thickening and distal small bowel which is contiguous with this structure. There is also abnormal wall thickening in the distal sigmoid colon which is contiguous with this structure. 2. There is tree-in-bud type parenchymal opacity in the lung bases the appearance initially patient is most suspicious for atypical infection which can include fungal infection,, MAURICIO, and tuberculosis. XR chest 1V ap INDICATION / CLINICAL INFORMATION: abnormal incidental finding on abd CT. COMPARISON: CT from 09/26/2019. FINDINGS: SUPPORT DEVICES: None. HEART /PULMONARY VASCULATURE: No significant abnormality. LUNGS / PLEURA: Reticular nodular opacities persist throughout the lungs, most pronounced within the upper lungs bilaterally. Bilateral upper lung cavitary lesions are improved from prior study. ADDITIONAL FINDINGS: No significant additional findings. IMPRESSION: Persistent reticulonodular and partially cavitary opacities in the upper lungs, improved from CT from 2019. Findings are consistent with reported history of tuberculosis. - Medical Decision Making 30-year-old male with right lower quadrant abdominal pain with CT find suggested a perforated abscess versus mucocele with adjacent small bowel inflammation. Patient provided Zosyn, pain medication, IV fluids, and normal saline in ED. Abnormal x-ray noted with history of pulmonary tuberculosis status post co mpletion of treatment. No current respiratory symptoms reported. Hospitalist to admit with surgery consultation Critical Care Time: No Critical care attestation.: If time is entered above; I have spent that time in minutes in the direct care of this critically ill patient, excluding procedure time. ED Disposition Clinical Impression: Ruptured appendix, Appendix abscess, History of tuberculosis Disposition: 09 OP ADMIT IP TO THIS HOSP Is pt being admited?: Yes Condition: Stable Time of Disposition: 08:12 (Dr. Butler/hospitalist)
--- NOTE | 2020-10-20 09:37 | Consultation ---
History of Present Illness Consult date: 10/20/20 Reason for consult: abdominal pain Chief complaint: abd pain - History of present illness History of present illness: 30 year old male with hx of TB/ patient states he has been [facility] he has a one week hx of abd pain, presented to ER where CT reveals probable perforated appendix with phlegmon,versus mucocele, patient has WBC 11k, hemodyn stable, afebrile. Past History Past Medical History: other (Hx of TB which patient states was treated and he is followed by [facility] Past Surgical History: No surgical history Social history: smoking Family history: no significant family history Medications and Allergies Allergies Allergy/AdvReac Type Severity Reaction Status Date / Time No Known Allergies Allergy Verified 09/26/19 15:53 Home Medications Medication Instructions Recorded Confirmed Last Taken Type Ethambutol [Myambutol] 1,600 mg PO QDAY tablet 10/01/19 Unknown Rx Isoniazid 300 mg PO QDAY tablet 10/01/19 Unknown Rx Pyrazinamide 1,500 mg PO QDAY tablet 10/01/19 Unknown Rx Pyridoxine [Vitamin B-6 50MG TAB] 50 mg PO QDAY tablet 10/01/19 Unknown Rx rifAMPin [Rifadin] 600 mg PO QDAY capsule 10/01/19 Unknown Rx Review of Systems - Gastrointestinal abdominal pain Exam Vital Signs Temp Pulse Resp BP Pulse Ox 98.4 F 101 H 20 118/72 97 10/20/20 03:17 10/20/20 03:17 10/20/20 03:17 10/20/20 03:17 10/20/20 03:17 - General physical appearance Positive: no distress - Eyes Positive: PERRL, normal occular movement - ENT Positive: normal pinna, normal nares, normal mucosa, no hearing loss, no congestion - Neck Positive: no masses, no bruits, trachea midline, no venous distension - Respiratory Positive: normal expansion, normal respiratory effort, clear to auscultation - Cardiovascular Rhythm: regular - Extremities Extremities: no ischemia, pulses symmetrical, No edema Peripheral Pulses: within normal limits - Breasts Breasts: normal (tender to deep palpation in RLQ) - Abdomen Hernia: none - Genitourinary Male Genitourinary: deferred - Neurologic Neurologic: alert and oriented to time, place and person, motor strength and sensation are grossly intact - Musculoskeletal normal gait, normal posture - Psychiatric Psychiatric: appropriate mood/affect, intact judgment & insight Results - Labs 10/20/20 03:34 10/20/20 03:34 Abnormal lab results 10/20/20 10/20/20 Range/Units 03:34 03:34 WBC 11.6 H (4.5-11.0) K/mm3 Hgb 11.1 L (11.8-15.2) gm/dl Hct 34.3 L (35.5-45.6) % MCV 82 L (84-94) fl MCH 27 L (28-32) pg RDW 15.6 H (13.2-15.2) % Plt Count 470 H (140-440) K/mm3 Lymph % (Auto) 5.1 L (13.4-35.0) % [place] % (Auto) 11.9 H (0.0-7.3) % Lymph # (Auto) 0.6 L (1.2-5.4) K/mm3 [place] # (Auto) 1.4 H (0.0-0.8) K/mm3 Seg Neutrophils % 82.0 H (40.0-70.0) % Seg Neutrophils # 9.6 H (1.8-7.7) K/mm3 Sodium 132 L (137-145) mmol/L Chloride 96.0 L (98-107) mmol/L Creatinine 0.6 L (0.8-1.3) mg/dL Total Protein 8.4 H (6.3-8.2) g/dL Albumin 3.6 L (3.9-5) g/dL Lipase 9 L (13-60) units/L Diabetes panel 10/20/20 Range/Units 03:34 Sodium 132 L (137-145) mmol/L Potassium 4.4 (3.6-5.0) mmol/L Chloride 96.0 L (98-107) mmol/L Carbon Dioxide 23 (22-30) mmol/L BUN 10 (9-20) mg/dL Creatinine 0.6 L (0.8-1.3) mg/dL Glucose 99 (75-100) mg/dL Calcium 9.0 (8.4-10.2) mg/dL AST 19 (5-40) units/L ALT 14 (7-56) units/L Alkaline Phosphatase 89 (35-129) units/L Total Protein 8.4 H (6.3-8.2) g/dL Albumin 3.6 L (3.9-5) g/dL Calcium panel 10/20/20 Range/Units 03:34 Calcium 9.0 (8.4-10.2) mg/dL Albumin 3.6 L (3.9-5) g/dL Pituitary panel 10/20/20 Range/Units 03:34 Sodium 132 L (137-145) mmol/L Potassium 4.4 (3.6-5.0) mmol/L Chloride 96.0 L (98-107) mmol/L Carbon Dioxide 23 (22-30) mmol/L BUN 10 (9-20) mg/dL Creatinine 0.6 L (0.8-1.3) mg/dL Glucose 99 (75-100) mg/dL Calcium 9.0 (8.4-10.2) mg/dL Adrenal panel 10/20/20 Range/Units 03:34 Sodium 132 L (137-145) mmol/L Potassium 4.4 (3.6-5.0) mmol/L Chloride 96.0 L (98-107) mmol/L Carbon Dioxide 23 (22-30) mmol/L BUN 10 (9-20) mg/dL Creatinine 0.6 L (0.8-1.3) mg/dL Glucose 99 (75-100) mg/dL Calcium 9.0 (8.4-10.2) mg/dL Total Bilirubin 0.30 (0.1-1.2) mg/dL AST 19 (5-40) units/L ALT 14 (7-56) units/L Alkaline Phosphatase 89 (35-129) units/L Total Protein 8.4 H (6.3-8.2) g/dL Albumin 3.6 L (3.9-5) g/dL Assessment and Plan acute appendicitis/ perforated with phlegmon versus mucocoele, will admit, iv antibiotics, open appendectomy. Will discuss case with Pulmonary.
[2020-10-20 10:44] LABS: Bilirubin,Urine NEG (Negative); Blood,Urine MOD (Negative); Color,Urine Yellow (Yellow); Mucus,Urine FEW /HPF
[2020-10-20] MEDS ORDERED: ACETAMINOPHEN 325 MG TAB PO PRN ×2 (11:14)
--- NOTE | 2020-10-20 11:14 | History and Physical Report ---
History of Present Illness Date of examination: 10/20/20 Date of admission: 10/20/20 09:50 Chief complaint: Abdominal pain History of present illness: 30-year-old male with a past medical history of pulmonary tuberculosis diagnosed here in September 2019 and subsequently completed course of treatment presents to the hospital with complaints of right lower quadrant pain x2 week. The last week patient has had intermittent right lower quadrant throbbing abdominal pain rated 5/10 intensity. Pain worse with palpation and movement. No alleviating factors. Patient had one episode of vomiting yesterday. He denies fever or previous abdominal surgeries. Patient was seen at an urgent care several days ago in [place] who suggested that he might have appendicitis that he should go to the hospital for evaluation. However, patient did not come to the hospital until today. CT reveals probable perforated appendix with phlegmon,versus mucocele. Past History Past Medical History: other (Hx of TB which patient states was treated and he is followed by [facility] Past Surgical History: No surgical history Social history: smoking Family history: no significant family history Medications and Allergies Allergies Allergy/AdvReac Type Severity Reaction Status Date / Time No Known Allergies Allergy Verified 09/26/19 15:53 Home Medications Medication Instructions Recorded Confirmed Last Taken Type Ethambutol [Myambutol] 1,600 mg PO QDAY tablet 10/01/19 Unknown Rx Isoniazid 300 mg PO QDAY tablet 10/01/19 Unknown Rx Pyrazinamide 1,500 mg PO QDAY tablet 10/01/19 Unknown Rx Pyridoxine [Vitamin B-6 50MG TAB] 50 mg PO QDAY tablet 10/01/19 Unknown Rx rifAMPin [Rifadin] 600 mg PO QDAY capsule 10/01/19 Unknown Rx Review of Systems All systems: negative Exam - Constitutional Vitals: Temp Pulse Resp BP Pulse Ox 97.7 F 87 16 122/75 99 10/20/20 07:58 10/20/20 07:58 10/20/20 07:58 10/20/20 07:58 10/20/20 07:58 General appearance: Present: no acute distress, well-nourished - EENT Eyes: Present: PERRL ENT: hearing intact, clear oral mucosa - Neck Neck: Present: supple, normal ROM - Respiratory Respiratory effort: normal Respiratory: bilateral: CTA - Cardiovascular Heart Sounds: Present: S1 & S2. Absent: rub, click - Extremities Extremities: pulses symmetrical, No edema Peripheral Pulses: within normal limits - Abdominal General gastrointestinal: Present: soft, non-tender, non-distended, normal bowel sounds Male genitourinary: Present: normal - Integumentary Integumentary: Present: clear, warm, dry - Musculoskeletal Musculoskeletal: gait normal, strength equal bilaterally - Psychiatric Psychiatric: appropriate mood/affect, intact judgment & insight - Neurologic Neurologic: CNII-XII intact, moves all extremities Results - Labs CBC & Chem 7: 10/20/20 03:34 10/20/20 03:34 Labs: Laboratory Last Values WBC 11.6 K/mm3 (4.5-11.0) H 10/20/20 03:34 RBC 4.20 M/mm3 (3.65-5.03) 10/20/20 03:34 Hgb 11.1 gm/dl (11.8-15.2) L 10/20/20 03:34 Hct 34.3 % (35.5-45.6) L 10/20/20 03:34 MCV 82 fl (84-94) L 10/20/20 03:34 MCH 27 pg (28-32) L 10/20/20 03:34 MCHC 33 % (32-34) 10/20/20 03:34 RDW 15.6 % (13.2-15.2) H 10/20/20 03:34 Plt Count 470 K/mm3 (140-440) H 10/20/20 03:34 Lymph % (Auto) 5.1 % (13.4-35.0) L 10/20/20 03:34 [place] % (Auto) 11.9 % (0.0-7.3) H 10/20/20 03:34 Eos % (Auto) 0.5 % (0.0-4.3) 10/20/20 03:34 Baso % (Auto) 0.5 % (0.0-1.8) 10/20/20 03:34 Lymph # (Auto) 0.6 K/mm3 (1.2-5.4) L 10/20/20 03:34 [place] # (Auto) 1.4 K/mm3 (0.0-0.8) H 10/20/20 03:34 Eos # (Auto) 0.1 K/mm3 (0.0-0.4) 10/20/20 03:34 Baso # (Auto) 0.1 K/mm3 (0.0-0.1) 10/20/20 03:34 Seg Neutrophils % 82.0 % (40.0-70.0) H 10/20/20 03:34 Seg Neutrophils # 9.6 K/mm3 (1.8-7.7) H 10/20/20 03:34 Sodium 132 mmol/L (137-145) L 10/20/20 03:34 Potassium 4.4 mmol/L (3.6-5.0) 10/20/20 03:34 Chloride 96.0 mmol/L (98-107) L 10/20/20 03:34 Carbon Dioxide 23 mmol/L (22-30) 10/20/20 03:34 Anion Gap 17 mmol/L 10/20/20 03:34 BUN 10 mg/dL (9-20) 10/20/20 03:34 Creatinine 0.6 mg/dL (0.8-1.3) L 10/20/20 03:34 Estimated GFR > 60 ml/min 10/20/20 03:34 BUN/Creatinine Ratio 17 % 10/20/20 03:34 Glucose 99 mg/dL (75-100) 10/20/20 03:34 Calcium 9.0 mg/dL (8.4-10.2) 10/20/20 03:34 Total Bilirubin 0.30 mg/dL (0.1-1.2) 10/20/20 03:34 AST 19 units/L (5-40) 10/20/20 03:34 ALT 14 units/L (7-56) 10/20/20 03:34 Alkaline Phosphatase 89 units/L (35-129) 10/20/20 03:34 Total Protein 8.4 g/dL (6.3-8.2) H 10/20/20 03:34 Albumin 3.6 g/dL (3.9-5) L 10/20/20 03:34 Albumin/Globulin Ratio 0.8 % 10/20/20 03:34 Lipase 9 units/L (13-60) L 10/20/20 03:34 Urine Color Yellow (Yellow) 10/20/20 08:10 Urine Turbidity Clear (Clear) 10/20/20 08:10 Urine pH 5.0 (5.0-7.0) 10/20/20 08:10 Ur Specific Orange 1.015 (1.003-1.030) 10/20/20 08:10 Urine Protein 30 mg/dl mg/dL (Negative) 10/20/20 08:10 Urine Glucose (UA) Neg mg/dL (Negative) 10/20/20 08:10 Urine Ketones Neg mg/dL (Negative) 10/20/20 08:10 Urine Blood Mod (Negative) 10/20/20 08:10 Urine Nitrite Neg (Negative) 10/20/20 08:10 Urine Bilirubin Neg (Negative) 10/20/20 08:10 Urine Urobilinogen 2.0 mg/dL (<2.0) 10/20/20 08:10 Ur Leukocyte Esterase Neg (Negative) 10/20/20 08:10 Urine WBC (Auto) 2.0 /HPF (0.0-6.0) 10/20/20 08:10 Urine RBC (Auto) 15.0 /HPF (0.0-6.0) 10/20/20 08:10 Urine Mucus Few /HPF 10/20/20 08:10 Hernandez/IV: IV Catheter Type [Right INT / Saline Lock Forearm] Assessment and Plan Assessment and plan: Ruptured appendicitis. Sepsis. Etiology secondary to above. History of tuberculosis. 10/20/2020. General surgery has been consulted and plans for open appendectomy. Patient reportedly has completed treatment for his tuberculosis. Consult ID for further evaluation. Continue antibiotics of Zosyn.
--- NOTE | 2020-10-20 11:24 | Event Note ---
Date: 10/20/20 Abd exam, patient is tender to deep palpation in right lower quadrant, no rebound or guarding, active BS.
[2020-10-20] MEDS ORDERED: HYDROmorphone 1 MG/1 ML INJ IV PRN (11:29)
[2020-10-20] MEDS ORDERED: ONDANSETRON 4 MG/2 ML INJ IV PRN (11:29)
[2020-10-20] MEDS ORDERED: propofoL 200 MG/20 ML VIAL IV ONE (11:40)
[2020-10-20] MEDS ORDERED: SUCCINYLCHOLINE CHLORIDE 200 MG/10 ML INJ MDV ONE (11:41)
[2020-10-20] MEDS ORDERED: LIDOCAINE MPF (2%) 20 MG/1 ML VIAL 5 ML ONE (11:41)
--- NOTE | 2020-10-20 11:54 | Anesthesia Day of Surgery ---
Anesthesia Day of Surgery - Day of Surgery Patient Examined: Yes Patient H&P Reviewed: Yes Patient is NPO: Yes
--- NOTE | 2020-10-20 11:54 | Anesthesia Consultation ---
Anesthesia Consult and Med Hx Date of service: 10/20/20 - Airway Anesthetic Teeth Evaluation: Good ROM Head & Neck: Adequate Mental/Hyoid Distance: Adequate Mallampati Class: Class I Intubation Access Assessment: Good - Pulmonary Exam CTA: Yes - Cardiac Exam Cardiac Exam: RRR - Pre-Operative Health Status ASA Pre-Surgery Classification: ASA2, Emergency Proposed Anesthetic Plan: General - Pulmonary Hx Smoking: Yes Hx Respiratory Symptoms: No Hx Pneumonia: Yes (hx pulmonary TB 1 yr ago s/p treatment) - Cardiovascular System Hx Hypertension: No - Central Nervous System CVA: No - Endocrine Hx Renal Disease: No Hx Liver Disease: No Hx Insulin Dependent Diabetes: No Hx Non-Insulin Dependent Diabetes: No Hx Thyroid Disease: No - Hematic Hx Anemia: Yes - Other Systems Hx Obesity: No - Additional Comments Anesthesia Medical History Comments: Presented likely perforated appendicitis w/ associated phlegmon scheduled for urgent open appendectomy. HD stable. Plan GETA + standard ASA monitors.
[2020-10-20] MEDS ORDERED: ROCURONIUM 50 MG/5 ML INJ IV ONE (12:16)
[2020-10-20] MEDS ORDERED: LACTATED RINGERS 1,000 ML ONE (12:16)
[2020-10-20] MEDS ORDERED: ceFAZolin/Water 2 GM/20 ML 2 GM/20 ML SYRINGE IV ONE (12:26)
[2020-10-20] MEDS ORDERED: NEOMY 40 MG/POLYMYXIN B 200,000 UNITS/ML (GU) AMPULE IR ONE ×2 (12:41→14:14)
[2020-10-20] MEDS ORDERED: HYDROGEN PEROXIDE 118 ML SOLUTION ONE (12:42)
[2020-10-20] MEDS ORDERED: LACTATED RINGERS 1,000 ML IV SCH (13:30)
[2020-10-20] MEDS ORDERED: SODIUM CHLORIDE 0.9% 1000 ML 1,000 ML ONE (13:45)
[2020-10-20] MEDS ORDERED: SODIUM CHLORIDE 0.9% IRR 1,000 ML BOTTLE IR ONE (14:15)
[2020-10-20] MEDS ORDERED: NEOSTIGMINE 10MG/10 ML INJ MDV ONE (14:41)
[2020-10-20] MEDS ORDERED: GLYCOPYRROLATE 0.4 MG/2 ML INJ ONE (14:41)
[2020-10-20] MEDS ORDERED: ONDANSETRON 4 MG/2 ML INJ ONE (14:42)
[2020-10-20] MEDS ORDERED: KETOROLAC 30 MG/1 ML INJ ONE (14:42)
--- NOTE | 2020-10-20 15:03 | Post Operative Note ---
Pre-op diagnosis: appendicitis with abcess/phlegmon Post-op diagnosis: other (Appendicial mass/abcess) Findings: appendiceal mass involving terminal illeum and cecum, abcess Procedure: exploratory laparotomy, right illeocecectomy, drainage of abcess, intraop deep cultures, 19 sara drain. Anesthesia: GETA Surgeon: KIRSTIE PABON Estimated blood loss: minimal Pathology: list (terminal illeum marked with suture, cecum inked distal margin,) Specimen disposition: to lab Condition: stable Disposition: floor
[2020-10-20] MEDS ORDERED: HYDROmorphone 1 MG/1 ML INJ ONE (15:15)
[2020-10-20] MEDS: MORPHINE 4 MG/1 ML INJ IV PRN ×2 (15:40→22:38)
--- NOTE | 2020-10-20 15:45 | Operative Report ---
PREOPERATIVE DIAGNOSIS: Appendicitis with abscess and phlegmon. POSTOPERATIVE DIAGNOSIS: Appendiceal mass, which was associated with abscess. OPERATIVE FINDINGS: Demonstrated the appendiceal mass was involving the terminal ileum and cecum. there was an abscess adjacent to it, which was well contained. PROCEDURE: Exploratory laparotomy through a low midline incision, a right ileocecectomy, drainage of the deep abscess, placement of a 19 Bridger drain in the abscess cavity, and intraoperative deep cultures. ANESTHESIA: General. SURGEON: Sriram Varela MD. BLOOD LOSS: Minimal. PATHOLOGY: Consisted of the terminal ileum, which proximally was marked with a suture and then the cecum with its distal margin marked with blue ink. The specimen was sent to the lab. CONDITION: Stable. DISPOSITION: To the floor. DESCRIPTION OF PROCEDURE: After informed consent, the patient was brought to the operating room, induced under general anesthesia. He received IV antibiotics and had compression stockings in place. He was sterilely prepped and draped with an Ioban drape and then a standard low midline incision was used extending at the umbilicus down to the pubic symphysis with a #15 scalpel. I stayed along the midline and then followed it down dissecting through the subcutaneous fat down to the underlying linea alba. It was elevated between 2 curved hemostats. A small alek was made and then peritoneum was opened and entered the intraabdominal cavity. There was no evidence of any shawn pus upon just entering the cavity. There was no gush of air. I used the full incision and then placed the various blades of the Bookwalter retractor to optimize exposure. I put the patient in some Trendelenburg and then very carefully mobilized the right colon along the white line of Toldt. The operative findings consisted of a very abnormal terminal ileum, which was quite inflamed and associated with a rock hard mass, which appeared to extend, I followed the tenia down to the end to identify the base of the appendix. It was abnormal and it was going in a retroperitoneal direction involving the terminal ileum and the cecum. It was a highly inflamed, a lot of desmoplastic reaction. I very carefully mobilized the right colon and then extended posteriorly into the abscess cavity, which was contained and localized. It was suctioned out and deep cultures were immediately sent. I packed it with a lap sponge and then carried out mobilizing the right colon. I took down the white line of Toldt, tucking down the hepatic flexure and very carefully examined the cecum and terminal ileum. Terminal ileum was very abnormal and dilated. I made a decision because of my concern for tumor to proceed with an ileocecectomy. I cleared away the mesentery in the more proximal portion of the terminal ileum with the Bovie and fired a single application of the ANASTASIA-75 stapler. Then, I cleared away the mesentery from the cecum and in a normal area and fired a ANASTASIA-75 stapler in a like fashion. Then, I used the LigaSure device and took down the mesentery. I oversewed the mesentery with a running 3-0 continuous Vicryl. The right ureter was identified and spared. Then, I washed out the abdomen locally with dilute hydrogen peroxide and normal saline until clear. Then, I carefully examined the terminal ileum, which appeared relatively normal. I marked the proximal small bowel and a portion of the ileum with a long 3-0 Vicryl suture and then the portion of the ascending colon with a blue ink. It was sent for permanent pathology. Then, I mobilized the two ends and I did a [id number] anastomosis, basically placed some stay stitches with 3-0 Vicryls and along the antimesenteric border of the colon and the small bowel. I used the Bovie and made a small punctate hole. I dilated it with a curved hemostat. I placed lap pads, sponges around the anastomosis to protect any contamination. I fired a single application of the 75-ANASTASIA stapler along the antimesenteric border. The lumen was widely patent and I fired an application of a TA stapler across both the ends and then oversewed the staple line with interrupted 3-0 silk Lembert stitches. The lumen was widely patent. I closed the mesenteric defect with a 3-0 Vicryl running stitch. In the course of carrying this out, there was a misfire of the TA stapler, so I just simply redid the anastomosis by using a ANASTASIA stapler and picked suitable areas along the antimesenteric border. I fired another application of the ANASTASIA-75 stapler and used a TA-90, which worked successfully and then I closed the mesentery again and used interrupted Lembert stitches to oversew the staple line. The lumen was widely patent. The bowel had excellent perfusion. There was no significant bleeding. Then, after this was completed, I washed out the abdomen again with normal saline until completely clear. I placed a 19 Bridger drain down in the abscess cavity, which situated more retroperitoneally, posteriorly to the area of the cecum and terminal ileum. I had already sent the specimen and then I closed utilizing a looped PDS inferiorly and superiorly. I used bouchra for the skin. I packed the skin with Shahbaz maria antonia soaked in Betadine and applied a sterile dressing. The patient was hemodynamically stable throughout the procedure. I confirmed placement of the NG tube at the time of surgery and to anesthesia and then a sterile dressing was applied. The sponge and needle count was correct x 2 at the completion of the procedure. JOB# [id number] ANN/LOLA
[2020-10-20] MEDS: HYDROmorphone 1 MG/1 ML INJ IV PRN ×2 (16:44→20:30)
[2020-10-20] MEDS: PIPERACIL/TAZOBACTA 4.5/NS 100 4.5 GM/100 ML VIAL IV SCH ×2 (16:57→22:37)
[2020-10-20] MEDS: D5W/0.45% NACL 1,000 ML IV SCH (16:57)
[2020-10-20] MEDS: ONDANSETRON 4 MG/2 ML INJ IV PRN (23:37)
[2020-10-21] MEDS ORDERED: LORazepam 2 MG/ML VIAL IV ONE ×2 (01:20→04:51)
[2020-10-21] MEDS ORDERED: METOCLOPRAMIDE 10 MG/2 ML INJ IV ONE ×2 (01:20→04:59)
[2020-10-21] MEDS: MORPHINE 4 MG/1 ML INJ IV PRN ×4 (02:39→23:44)
[2020-10-21] MEDS: D5W/0.45% NACL 1,000 ML IV SCH (03:41)
[2020-10-21] MEDS: PIPERACIL/TAZOBACTA 4.5/NS 100 4.5 GM/100 ML VIAL IV SCH ×3 (05:54→22:40)
[2020-10-21 06:03] LABS: Hematocrit 32.6 % (35.5-45.6); Hemoglobin 10.5 gm/dl (11.8-15.2); Mean Corpuscular HGB Conc 32 % (32-34); Mean Corpuscular Volume 82 fl (84-94); Platelet Count 434 K/mm3 (140-440); Red Blood Count 3.97 M/mm3 (3.65-5.03); Red Cell Distribution Width 15.4 % (13.2-15.2)
[2020-10-21 06:13] LABS: Blood Urea Nitrogen 8 mg/dL (9-20); Calcium 8.3 mg/dL (8.4-10.2); Hemolysis Index 0
[2020-10-21 06:23] LABS: BUN/Creatinine Ratio 13
--- NOTE | 2020-10-21 07:50 | Event Note ---
Date: 10/21/20 POD 1 s/p illeocecectomy, drainage of abcess, c/o incisional pain and hiccups, VSS AF, dressing dry and intact, hypoactive bs, able to void, labs OK this am, WBC 15 K, lytes OK, H and HCT stable, will d/c NG, ice chips OK, thorazine iv x 1 for hiccups, OK for sub q heparin, INF DZ consult pending regarding disposition on TB and adjusting antibiotics per cultures.
[2020-10-21] MEDS ORDERED: KETOROLAC 30 MG/1 ML INJ IV SCH (08:00)
--- NOTE | 2020-10-21 08:06 | Progress Note ---
Assessment and Plan Assessment and plan: Ruptured appendicitis. Sepsis. Etiology secondary to above. History of tuberculosis. 10/20/2020. General surgery has been consulted and plans for open appendectomy. Patient reportedly has completed treatment for his tuberculosis. Consult ID for further evaluation. Continue antibiotics of Zosyn. 10/21/2020. Patient is POD 1 s/p illeocecectomy, drainage of abcess. Patient currently complaining of incisional pain and hiccups. Infectious disease follow-up for plan on recent TB and treatment. ? Medical compliance. I discussed the case with general surgeon Dr. Elizabeth who reports that he wants to be responsible for management of pain medications. Continue current IV antibiotics per ID recommendations. History Interval history: No new issues overnight. Hospitalist Physical - Constitutional Vitals: Temp Pulse Resp BP Pulse Ox 97.7 F 63 20 146/92 100 10/21/20 04:03 10/21/20 04:03 10/21/20 04:03 10/21/20 04:03 10/21/20 07:50 General appearance: Present: no acute distress, well-nourished - EENT Eyes: Present: PERRL, EOM intact ENT: hearing intact, clear oral mucosa, dentition normal - Neck Neck: Present: supple, normal ROM - Respiratory Respiratory effort: normal Respiratory: bilateral: CTA - Cardiovascular Rhythm: regular Heart Sounds: Present: S1 & S2. Absent: gallop, rub - Extremities Extremities: no ischemia, No edema, Full ROM - Abdominal General gastrointestinal: soft, non-tender, non-distended, normal bowel sounds - Integumentary Integumentary: Present: clear, warm, dry - Neurologic Neurologic: CNII-XII intact, moves all extremities Results - Labs CBC & Chem 7: 10/21/20 05:29 10/21/20 05:29 Labs: Laboratory Last Values WBC 15.4 K/mm3 (4.5-11.0) H 10/21/20 05:29 RBC 3.97 M/mm3 (3.65-5.03) 10/21/20 05:29 Hgb 10.5 gm/dl (11.8-15.2) L 10/21/20 05:29 Hct 32.6 % (35.5-45.6) L 10/21/20 05:29 MCV 82 fl (84-94) L 10/21/20 05:29 MCH 26 pg (28-32) L 10/21/20 05:29 MCHC 32 % (32-34) 10/21/20 05:29 RDW 15.4 % (13.2-15.2) H 10/21/20 05:29 Plt Count 434 K/mm3 (140-440) 10/21/20 05:29 Lymph % (Auto) 5.1 % (13.4-35.0) L 10/20/20 03:34 Mcminn % (Auto) 11.9 % (0.0-7.3) H 10/20/20 03:34 Eos % (Auto) 0.5 % (0.0-4.3) 10/20/20 03:34 Baso % (Auto) 0.5 % (0.0-1.8) 10/20/20 03:34 Lymph # (Auto) 0.6 K/mm3 (1.2-5.4) L 10/20/20 03:34 Mcminn # (Auto) 1.4 K/mm3 (0.0-0.8) H 10/20/20 03:34 Eos # (Auto) 0.1 K/mm3 (0.0-0.4) 10/20/20 03:34 Baso # (Auto) 0.1 K/mm3 (0.0-0.1) 10/20/20 03:34 Seg Neutrophils % Bicycle Messenger 10/21/20 05:29 Seg Neutrophils # 9.6 K/mm3 (1.8-7.7) H 10/20/20 03:34 Sodium 133 mmol/L (137-145) L 10/21/20 05:29 Potassium 4.5 mmol/L (3.6-5.0) 10/21/20 05:29 Chloride 96.9 mmol/L (98-107) L 10/21/20 05:29 Carbon Dioxide 25 mmol/L (22-30) 10/21/20 05:29 Anion Gap 16 mmol/L 10/21/20 05:29 BUN 8 mg/dL (9-20) L 10/21/20 05:29 Creatinine 0.6 mg/dL (0.8-1.3) L 10/21/20 05:29 Estimated GFR > 60 ml/min 10/21/20 05:29 BUN/Creatinine Ratio 13 % 10/21/20 05:29 Glucose 151 mg/dL (75-100) H 10/21/20 05:29 Calcium 8.3 mg/dL (8.4-10.2) L 10/21/20 05:29 Total Bilirubin 0.30 mg/dL (0.1-1.2) 10/20/20 03:34 AST 19 units/L (5-40) 10/20/20 03:34 ALT 14 units/L (7-56) 10/20/20 03:34 Alkaline Phosphatase 89 units/L (35-129) 10/20/20 03:34 Total Protein 8.4 g/dL (6.3-8.2) H 10/20/20 03:34 Albumin 3.6 g/dL (3.9-5) L 10/20/20 03:34 Albumin/Globulin Ratio 0.8 % 10/20/20 03:34 Lipase 9 units/L (13-60) L 10/20/20 03:34 Urine Color Yellow (Yellow) 10/20/20 08:10 Urine Turbidity Clear (Clear) 10/20/20 08:10 Urine pH 5.0 (5.0-7.0) 10/20/20 08:10 Ur Specific [place] 1.015 (1.003-1.030) 10/20/20 08:10 Urine Protein 30 mg/dl mg/dL (Negative) 10/20/20 08:10 Urine Glucose (UA) Neg mg/dL (Negative) 10/20/20 08:10 Urine Ketones Neg mg/dL (Negative) 10/20/20 08:10 Urine Blood Mod (Negative) 10/20/20 08:10 Urine Nitrite Neg (Negative) 10/20/20 08:10 Urine Bilirubin Neg (Negative) 10/20/20 08:10 Urine Urobilinogen 2.0 mg/dL (<2.0) 10/20/20 08:10 Ur Leukocyte Esterase Neg (Negative) 10/20/20 08:10 Urine WBC (Auto) 2.0 /HPF (0.0-6.0) 10/20/20 08:10 Urine RBC (Auto) 15.0 /HPF (0.0-6.0) 10/20/20 08:10 Urine Mucus Few /HPF 10/20/20 08:10 Blood Type O POSITIVE 10/20/20 16:20 Antibody Screen Negative 10/20/20 16:20 Hernandez/IV: Voiding Method Urinal IV Catheter Type [Right INT / Saline Lock Forearm] Active Medications - Current Medications Current Medications: Generic Name Dose Route Start Last Admin Trade Name Freq PRN Reason Stop Dose Admin Acetaminophen 650 mg 10/20/20 11:14 Acetaminophen 325 Mg Tab PO Q4H PRN Pain MILD(1-3)/Fever >100.5/JAIMES Hydromorphone HCl 0.25 mg 10/20/20 11:14 10/20/20 20:30 Hydromorphone 1 Mg/1 Ml Inj IV 0.25 mg Q4H PRN Administration Pain, Moderate (4-6) Hydromorphone HCl 0.5 mg 10/20/20 11:29 Hydromorphone 1 Mg/1 Ml Inj IV 10/21/20 11:28 Q10MIN PRN Pain , Severe (7-10) Piperacillin Sod/Tazobactam Sod 4.5 gm in 100 mls @ 200 mls/hr 10/20/20 14:00 10/21/20 05:54 Zosyn/Ns 4.5gm/100ml IV 200 mls/hr Q8H CARLTON Administration Protocol Dextrose/Sodium Chloride 1,000 mls @ 100 mls/hr 10/20/20 16:00 10/21/20 03:41 D5/0.45ns IV 100 mls/hr DIRECT CARLTON Administration Chlorpromazine HCl 25 mg/ 51 mls @ 100 mls/hr 10/21/20 07:50 Sodium Chloride IV 10/21/20 08:20 ONCE ONE Ketorolac Tromethamine 15 mg 10/21/20 08:00 Ketorolac 30 Mg/1 Ml Inj IV 10/26/20 07:59 ONCE CARLTON Morphine Sulfate 4 mg 10/20/20 15:06 10/21/20 06:33 Morphine 4 Mg/1 Ml Inj IV 4 mg Q4H PRN Administration Pain , Severe (7-10) Ondansetron HCl 4 mg 10/20/20 11:14 10/20/20 23:37 Ondansetron 4 Mg/2 Ml Inj IV 4 mg Q8H PRN Administration Nausea And Vomiting Sodium Chloride 10 ml 10/20/20 22:00 10/20/20 22:37 Sodium Chloride 0.9% 10 Ml Flush Syringe IV 10 ml BID CARLTON Administration Sodium Chloride 10 ml 10/20/20 11:14 Sodium Chloride 0.9% 10 Ml Flush Syringe IV PRN PRN LINE FLUSH
[2020-10-21] MEDS ORDERED: chlorproMAZINE 25 MG in SODIUM CHLORIDE 0.9% 50 ML IV ONE (08:30)
[2020-10-21 10:25] LABS: Total Cells Counted 100
[2020-10-21 10:26] LABS: Platelet Estimate Consistent w Auto; RBC Morphology Normal
--- NOTE | 2020-10-21 12:29 | Consultation ---
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 Patient was started in [place] plus B6 on the DOT by [facility] with reportedly completion of therapy. Unfortunately, patient was readmitted on secondary to severe right lower quadrant pain for 2 weeks. Abdominal pain was intermittent and throbbing. Lucretia ent noted also nausea and vomiting. Patient was seen in urgent care in [place] and was told that he probably had appendicitis, recommending to go to the hospital for evaluation. Patient did not seek medical advice and show up to the hospital. On arrival, temperature 98.4, HR 101, RR 20, O2 sat 97%, BP 118/72. Initial WBC 11.6. Creatinine 0.6. Urinalysis negative. Chest x-ray shows persistent reticulonodular infiltrates partial cavitary opacities in the upper lobes. CT of the abdomen shows abdominal wall thickening distal small bowel and cecum with air antibiotics for centimeter possible collection. CT also shows tree-in-bud's parenchymal opacities in bilateral bases. Patient was taken to the operating room for appendicitis with an abscess. Findings appendiceal mass involving terminal ileum and cecum. Patient underwent exploratory laparotomy, right ileocecectomy, drainage of abscess, intraoperative cultures on 10/20/2020. Review of Systems: Unable to obtain. Patient is somnolent. Past History Past Medical History: other (Hx of TB which patient states was treated and he is followed by Health dept.) Past Surgical History: No surgical history Social history: smoking Family history: no significant family history Medications and Allergies Allergies Allergy/AdvReac Type Severity Reaction Status Date / Time No Known Allergies Allergy Verified 09/26/19 15:53 Home Medications Medication Instructions Recorded Confirmed Last Taken Type Ethambutol [Myambutol] 1,600 mg PO QDAY tablet 10/01/19 Unknown Rx Isoniazid 300 mg PO QDAY tablet 10/01/19 Unknown Rx Pyrazinamide 1,500 mg PO QDAY tablet 10/01/19 Unknown Rx Pyridoxine [Vitamin B-6 50MG TAB] 50 mg PO QDAY tablet 10/01/19 Unknown Rx rifAMPin [Rifadin] 600 mg PO QDAY capsule 10/01/19 Unknown Rx Active Meds: Active Medications Acetaminophen (Acetaminophen 325 Mg Tab) 650 mg PO Q4H PRN PRN Reason: Pain MILD(1-3)/Fever >100.5/JAIMES Hydromorphone HCl (Hydromorphone 1 Mg/1 Ml Inj) 0.25 mg IV Q4H PRN PRN Reason: Pain, Moderate (4-6) Last Admin: 10/20/20 20:30 Dose: 0.25 mg Documented by: Piperacillin Sod/Tazobactam Sod (Zosyn/Ns 4.5gm/100ml) 4.5 gm in 100 mls @ 200 mls/hr IV Q8H CARLTON; Protocol Last Admin: 10/21/20 05:54 Dose: 200 mls/hr Documented by: Dextrose/Sodium Chloride (D5/0.45ns) 1,000 mls @ 100 mls/hr IV DIRECT CARLTON Last Admin: 10/21/20 03:41 Dose: 100 mls/hr Documented by: Ketorolac Tromethamine (Ketorolac 30 Mg/1 Ml Inj) 15 mg IV ONCE CARLTON Stop: 10/26/20 07:59 Last Admin: 10/21/20 09:45 Dose: 15 mg Documented by: Morphine Sulfate (Morphine 4 Mg/1 Ml Inj) 4 mg IV Q4H PRN PRN Reason: Pain , Severe (7-10) Last Admin: 10/21/20 06:33 Dose: 4 mg Documented by: Ondansetron HCl (Ondansetron 4 Mg/2 Ml Inj) 4 mg IV Q8H PRN PRN Reason: Nausea And Vomiting Last Admin: 10/20/20 23:37 Dose: 4 mg Documented by: Sodium Chloride (Sodium Chloride 0.9% 10 Ml Flush Syringe) 10 ml IV BID CARLTON Last Admin: 10/21/20 09:45 Dose: 10 ml Documented by: Sodium Chloride (Sodium Chloride 0.9% 10 Ml Flush Syringe) 10 ml IV PRN PRN PRN Reason: LINE FLUSH Physical Examination - Physical Exam Narrative exam: General appearance: Somnolent, in no acute distress Eyes: anicteric sclerae, moist conjunctivae; no lid-lag; PERRLA HENT: Normocephalic, Atraumatic; normal external ears, nares open, oropharynx limited Neck: supple, tracheal midline, no JVD Lungs: CTA, CV: RRR no murmur Abdomen: Soft, tender to palpation diffusely, midline surgical wound covered with dressing. DARION drain with bloody output Extremities: no edema, no cyanosis Skin: No rash. Psych: Somnolent Neuro: Somnolent - Constitutional Vitals: Vital Signs Temp Pulse Resp BP Pulse Ox 98.4 F 81 18 132/84 100 10/21/20 07:42 10/21/20 07:42 10/21/20 07:42 10/21/20 07:42 10/21/20 07:50 Temperature -Last 24 Hours Temperature 98.4 F Temperature 97.7 F Temperature 98.2 F Temperature 97.4 F Temperature 97.6 F Temperature 97.9 F Temperature 98.5 F Results - Labs CBC & Chem 7: 10/21/20 05:29 10/21/20 05:29 Labs: Abnormal lab results 10/21/20 10/21/20 Range/Units 05:29 05:29 WBC 15.4 H (4.5-11.0) K/mm3 Hgb 10.5 L (11.8-15.2) gm/dl Hct 32.6 L (35.5-45.6) % MCV 82 L (84-94) fl MCH 26 L (28-32) pg RDW 15.4 H (13.2-15.2) % Seg Neuts % (Manual) 96.0 H (40.0-70.0) % Lymphocytes % (Manual) 3.0 L (13.4-35.0) % Seg Neutrophils # Man 14.8 H (1.8-7.7) K/mm3 Lymphocytes # (Manual) 0.5 L (1.2-5.4) K/mm3 Sodium 133 L (137-145) mmol/L Chloride 96.9 L (98-107) mmol/L BUN 8 L (9-20) mg/dL Creatinine 0.6 L (0.8-1.3) mg/dL Glucose 151 H (75-100) mg/dL Calcium 8.3 L (8.4-10.2) mg/dL Assessment and Plan Cultures: NONE Assessment: 30 years old male with 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 Patient was started in [place] plus B6 via DOT by [facility] with reportedly completion of therapy. Unfortunately, patient was readmitted on 10/20/2020 secondary to severe right lower quadrant pain for 2 weeks: #Sepsis: present on admission with tachycardia, leukocytosis, likely secondary to appendiceal abscess. #Ruptured appendicitis with abscess: Status post exploratory laparotomy, right ileocecectomy, drainage of abscess, intraoperative cultures on 10/20/2020. #History of pulmonary tuberculosis: Diagnosed in August 2019, treated with [place] plus B6 via DOT by [facility] with reportedly completion of therapy. On repeat chest x-ray shows persistent reticulonodular infiltrates with cavitary opacity in the upper lobes. CT abdomen shows tree-in-bud's parenchymal opacity in the bilateral bases. Patient with no report of persistent coughing, fever or night sweats. Recommendations: -Continue Zosyn IV for now -Add fluconazole 400 mg. once a day -Follow-up OR cultures -Consult mail caller to confirm completion of anti-TB treatment by the [facility] -Continue airborne isolation until discussion with health department -Monitor mentation, patient is somnolent Will follow. Marifer Charles MD Infectious Diseases Medical Referral Coordinator [facility] ([facility] M [phone] O [phone]
[2020-10-21] MEDS: FLUCONAZOLE 400 MG 200 ML IV SCH (18:00)
[2020-10-21] MEDS: HYDROmorphone 1 MG/1 ML INJ IV PRN (20:32)
[2020-10-22] MEDS: HYDROmorphone 1 MG/1 ML INJ IV PRN ×3 (03:49→21:46)
[2020-10-22] MEDS: D5W/0.45% NACL 1,000 ML IV SCH ×2 (03:56→17:43)
[2020-10-22 04:07] LABS: Blood Urea Nitrogen 4 mg/dL (9-20); Calcium 8.3 mg/dL (8.4-10.2); Hemolysis Index 2
[2020-10-22 04:08] LABS: BUN/Creatinine Ratio 7
[2020-10-22 04:31] LABS: Basophils % (Auto) 0.3 % (0.0-1.8); Eosinophils % (Auto) 0.5 % (0.0-4.3); Hematocrit 30.9 % (35.5-45.6); Hemoglobin 9.9 gm/dl (11.8-15.2); Lymphocytes # (Auto) 0.5 K/mm3 (1.2-5.4); Lymphocytes % (Auto) 6.8 % (13.4-35.0); Mean Corpuscular HGB Conc 32 % (32-34); Mean Corpuscular Volume 82 fl (84-94); Monocytes # (Auto) 0.9 K/mm3 (0.0-0.8); Monocytes % (Auto) 11.4 % (0.0-7.3); Platelet Count 424 K/mm3 (140-440); Red Blood Count 3.75 M/mm3 (3.65-5.03); Red Cell Distribution Width 15.7 % (13.2-15.2)
[2020-10-22] MEDS: PIPERACIL/TAZOBACTA 4.5/NS 100 4.5 GM/100 ML VIAL IV SCH ×3 (05:38→21:44)
--- NOTE | 2020-10-22 05:40 | Event Note ---
Date: 10/22/20 POD 2 s/p illeocecectomy for appendiceal mass and abcess, Zosyn day 2/diflucan day 1, cultures negative to date, I appreciate INF DZ input ( CM to follow up with Health Dept for f/u RIPE treatment for TB/ need resp isolation or at least patient wearing mask) VSS AF, drain patent, path pending. Continue NPO, mobilize, ice chips OK, check cultures and path, sub q heparin OK, Mobilize/ PT, DO NOT ADV DIET! Labs OK , renal function OK, H and HCT stable, WBC normal this am.
--- NOTE | 2020-10-22 09:04 | Progress Note ---
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 Patient was started in [place] plus B6 via DOT by [facility] with reportedly completion of therapy. Unfortunately, patient was readmitted on 10/20/2020 secondary to severe right lower quadrant pain for 2 weeks: #Sepsis: resolved, likely secondary to appendiceal abscess +/- partially treated TB #Ruptured appendicitis with abscess: Status post exploratory laparotomy, right ileocecectomy, drainage of abscess, intraoperative cultures on 10/20/2020. #?Partially treated pulmonary tuberculosis: Diagnosed in August 2019, treated with [place] plus B6 via DOT by [facility] with reportedly completion of therapy. On repeat chest x-ray shows persistent reticulonodular infiltrates with cavitary opacity in the upper lobes. CT abdomen shows tree-in-bud's parenchymal opacity in the bilateral bases. Spoke with sister today who was not sure if he completed antiTB therapy and reported he has been coughing. I talked to patient too and sister mentioned the cough he is now reporting he has been coughing up etienne sputum for a while. Recommendations: -airborne isolation -sputum for AFBx 3 - discussed with NS -SARS Cov2 PCR - doubt COVID -discussed with IP to call [facility] to determine completion of therapy -Continue Zosyn IV for now -Continue fluconazole 400 mg. once a day -Follow-up OR cultures Will follow. D/w nursing staff Marifer Charles MD Infectious Diseases Resolution Agent [facility] [place] M [phone] O [phone] Subjective Date of service: 10/22/20 Principal diagnosis: bilateral pneumonia Interval history: More alert talking, requesting pain med, no fever, c/o abdominal pain. Objective - Exam Narrative Exam: General appearance: Somnolent, in no acute distress Eyes: anicteric sclerae, moist conjunctivae; no lid-lag; PERRLA HENT: Normocephalic, Atraumatic; normal external ears, nares open, oropharynx limited Neck: supple, tracheal midline, no JVD Lungs: scattered eri crackles CV: RRR no murmur Abdomen: Soft, tender to palpation diffusely, midline surgical wound covered with dressing. DARION drain with bloody output Extremities: no edema, no cyanosis Skin: multiple tattoos Psych: Somnolent Neuro: Somnolent - Constitutional Vitals: Vital Signs Temp Pulse Resp BP Pulse Ox 98.2 F 67 18 130/92 100 10/22/20 08:05 10/22/20 08:05 10/22/20 08:05 10/22/20 08:05 10/22/20 08:05 Temperature -Last 24 Hours Temperature 98.2 F Temperature 97.9 F Temperature 98.0 F Temperature 98.3 F Temperature 98.4 F Temperature 98.3 F - Labs CBC & Chem 7: 10/22/20 03:05 10/22/20 03:05 Labs: Abnormal lab results 10/21/20 10/22/20 10/22/20 Range/Units 05:29 03:05 03:05 Hgb 9.9 L (11.8-15.2) gm/dl Hct 30.9 L (35.5-45.6) % MCV 82 L (84-94) fl MCH 26 L (28-32) pg RDW 15.7 H (13.2-15.2) % Lymph % (Auto) 6.8 L (13.4-35.0) % Haskell % (Auto) 11.4 H (0.0-7.3) % Lymph # (Auto) 0.5 L (1.2-5.4) K/mm3 Haskell # (Auto) 0.9 H (0.0-0.8) K/mm3 Seg Neutrophils % 81.0 H (40.0-70.0) % Seg Neuts % (Manual) 96.0 H (40.0-70.0) % Lymphocytes % (Manual) 3.0 L (13.4-35.0) % Seg Neutrophils # Man 14.8 H (1.8-7.7) K/mm3 Lymphocytes # (Manual) 0.5 L (1.2-5.4) K/mm3 Sodium (137-145) mmol/L Chloride (98-107) mmol/L BUN (9-20) mg/dL Creatinine (0.8-1.3) mg/dL Glucose (75-100) mg/dL Calcium (8.4-10.2) mg/dL C-Reactive Protein 22.30 H (0.00-1.30) mg/dL 10/22/20 Range/Units 03:05 Hgb (11.8-15.2) gm/dl Hct (35.5-45.6) % MCV (84-94) fl MCH (28-32) pg RDW (13.2-15.2) % Lymph % (Auto) (13.4-35.0) % Haskell % (Auto) (0.0-7.3) % Lymph # (Auto) (1.2-5.4) K/mm3 Haskell # (Auto) (0.0-0.8) K/mm3 Seg Neutrophils % (40.0-70.0) % Seg Neuts % (Manual) (40.0-70.0) % Lymphocytes % (Manual) (13.4-35.0) % Seg Neutrophils # Man (1.8-7.7) K/mm3 Lymphocytes # (Manual) (1.2-5.4) K/mm3 Sodium 133 L (137-145) mmol/L Chloride 97.7 L (98-107) mmol/L BUN 4 L (9-20) mg/dL Creatinine 0.6 L (0.8-1.3) mg/dL Glucose 106 H (75-100) mg/dL Calcium 8.3 L (8.4-10.2) mg/dL C-Reactive Protein (0.00-1.30) mg/dL
[2020-10-22] MEDS: FLUCONAZOLE 400 MG 200 ML IV SCH (10:31)
[2020-10-22] MEDS: HEPARIN 5,000 UNIT/1 ML VIAL SUB-Q SCH ×2 (10:42→21:45)
--- NOTE | 2020-10-22 11:46 | Progress Note ---
Assessment and Plan Assessment and plan: Appendiceal abscess with rupture- s/p ileocolectomy and drainage of abscess-on IV antibiotics and antifungal medications. ID following Sepsis. Etiology secondary to above. Improving History of tuberculosis. -Chest imaging shows bilateral infiltrates. Patient reportedly completed TB treatment. ID is following. Plan to repeat sputum AFB x3. Patient remains on airborne isolation. COVID-19 test also ordered by ID 10/20/2020. General surgery has been consulted and plans for open appendectomy. Patient reportedly has completed treatment for his tuberculosis. Consult ID for further evaluation. Continue antibiotics of Zosyn. 10/21/2020. Patient is POD 1 s/p illeocecectomy, drainage of abcess. Patient currently complaining of incisional pain and hiccups. Infectious disease follow-up for plan on recent TB and treatment. ? Medical compliance. I discussed the case with general surgeon Dr. Elizabeth who reports that he wants to be responsible for management of pain medications. Continue current IV antibiotics per ID recommendations. 10/22/2020. Has abdominal pain. ID following. On antibiotics. COVID-19 test ordered. History Interval history: Complains of abdominal pain Remains on isolation Hospitalist Physical - Physical exam Narrative exam: VITAL SIGNS: Reviewed. GENERAL: Awake HEAD: No signs of head trauma. EYES: Pupils are equal. Extraocular motions intact. MOUTH: Oropharynx is normal. NECK: No adenopathy, no JVD. CHEST: Chest with diminished breath sounds bilaterally. No wheezes, rales, or rhonchi. CARDIAC: normal S1 and S2, without murmurs, gallops, or rubs. ABDOMEN: Soft, tender to palpation diffusely, midline surgical wound covered with dressing. DARION drain with bloody output MUSCULOSKELETAL: No edema NEUROLOGIC EXAM: Alert and oriented x3. No focal neurologic deficits SKIN: No obvious lesions - Constitutional Vitals: Temp Pulse Resp BP Pulse Ox 98.2 F 67 18 130/92 100 10/22/20 08:05 10/22/20 08:05 10/22/20 08:05 10/22/20 08:05 10/22/20 09:07 Results - Labs CBC & Chem 7: 10/22/20 03:05 10/22/20 03:05 Labs: Laboratory Last Values WBC 7.9 K/mm3 (4.5-11.0) 10/22/20 03:05 RBC 3.75 M/mm3 (3.65-5.03) 10/22/20 03:05 Hgb 9.9 gm/dl (11.8-15.2) L 10/22/20 03:05 Hct 30.9 % (35.5-45.6) L 10/22/20 03:05 MCV 82 fl (84-94) L 10/22/20 03:05 MCH 26 pg (28-32) L 10/22/20 03:05 MCHC 32 % (32-34) 10/22/20 03:05 RDW 15.7 % (13.2-15.2) H 10/22/20 03:05 Plt Count 424 K/mm3 (140-440) 10/22/20 03:05 Lymph % (Auto) 6.8 % (13.4-35.0) L 10/22/20 03:05 [place] % (Auto) 11.4 % (0.0-7.3) H 10/22/20 03:05 Eos % (Auto) 0.5 % (0.0-4.3) 10/22/20 03:05 Baso % (Auto) 0.3 % (0.0-1.8) 10/22/20 03:05 Lymph # (Auto) 0.5 K/mm3 (1.2-5.4) L 10/22/20 03:05 [place] # (Auto) 0.9 K/mm3 (0.0-0.8) H 10/22/20 03:05 Eos # (Auto) 0.0 K/mm3 (0.0-0.4) 10/22/20 03:05 Baso # (Auto) 0.0 K/mm3 (0.0-0.1) 10/22/20 03:05 Add Manual Diff Complete 10/21/20 05:29 Total Counted 100 10/21/20 05:29 Seg Neutrophils % 81.0 % (40.0-70.0) H 10/22/20 03:05 Seg Neuts % (Manual) 96.0 % (40.0-70.0) H 10/21/20 05:29 Lymphocytes % (Manual) 3.0 % (13.4-35.0) L 10/21/20 05:29 Metamyelocytes % 1.0 % 10/21/20 05:29 Nucleated RBC % Not Reportable 10/21/20 05:29 Seg Neutrophils # 6.4 K/mm3 (1.8-7.7) 10/22/20 03:05 Seg Neutrophils # Man 14.8 K/mm3 (1.8-7.7) H 10/21/20 05:29 Band Neutrophils # 0.0 K/mm3 10/21/20 05:29 Lymphocytes # (Manual) 0.5 K/mm3 (1.2-5.4) L 10/21/20 05:29 Abs React Lymphs (Man) 0.0 K/mm3 10/21/20 05:29 Monocytes # (Manual) 0.0 K/mm3 (0.0-0.8) 10/21/20 05:29 Eosinophils # (Manual) 0.0 K/mm3 (0.0-0.4) 10/21/20 05:29 Basophils # (Manual) 0.0 K/mm3 (0.0-0.1) 10/21/20 05:29 Metamyelocytes # 0.2 K/mm3 10/21/20 05:29 Myelocytes # 0.0 K/mm3 10/21/20 05:29 Promyelocytes # 0.0 K/mm3 10/21/20 05:29 Blast Cells # 0.0 K/mm3 10/21/20 05:29 WBC Morphology Not Reportable 10/21/20 05:29 Hypersegmented Neuts Not Reportable 10/21/20 05:29 Hyposegmented Neuts Not Reportable 10/21/20 05:29 Hypogranular Neuts Not Reportable 10/21/20 05:29 Smudge Cells Not Reportable 10/21/20 05:29 Toxic Granulation Not Reportable 10/21/20 05:29 Toxic Vacuolation Not Reportable 10/21/20 05:29 Dohle Bodies Not Reportable 10/21/20 05:29 Pelger-Huet Anomaly Not Reportable 10/21/20 05:29 Sarah Rods Not Reportable 10/21/20 05:29 Platelet Estimate Consistent w auto 10/21/20 05:29 Clumped Platelets Not Reportable 10/21/20 05:29 Plt Clumps, EDTA Not Reportable 10/21/20 05:29 Large Platelets Not Reportable 10/21/20 05:29 Giant Platelets Not Reportable 10/21/20 05:29 Platelet Satelliting Not Reportable 10/21/20 05:29 Plt Morphology Comment Not Reportable 10/21/20 05:29 RBC Morphology Normal 10/21/20 05:29 Dimorphic RBCs Not Reportable 10/21/20 05:29 Polychromasia Not Reportable 10/21/20 05:29 Hypochromasia Not Reportable 10/21/20 05:29 Poikilocytosis Not Reportable 10/21/20 05:29 Anisocytosis Not Reportable 10/21/20 05:29 Microcytosis Not Reportable 10/21/20 05:29 Macrocytosis Not Reportable 10/21/20 05:29 Spherocytes Not Reportable 10/21/20 05:29 Pappenheimer Bodies Not Reportable 10/21/20 05:29 Sickle Cells Not Reportable 10/21/20 05:29 Target Cells Not Reportable 10/21/20 05:29 Tear Drop Cells Not Reportable 10/21/20 05:29 Ovalocytes Not Reportable 10/21/20 05:29 Helmet Cells Not Reportable 10/21/20 05:29 [place] Bodies Not Reportable 10/21/20 05:29 [place] Rings Not Reportable 10/21/20 05:29 [place] Cells Not Reportable 10/21/20 05:29 Bite Cells Not Reportable 10/21/20 05:29 Crenated Cell Not Reportable 10/21/20 05:29 Elliptocytes Not Reportable 10/21/20 05:29 Acanthocytes (Spur) Not Reportable 10/21/20 05:29 Rouleaux Not Reportable 10/21/20 05:29 Hemoglobin C Crystals Not Reportable 10/21/20 05:29 Schistocytes Not Reportable 10/21/20 05:29 Malaria parasites Not Reportable 10/21/20 05:29 [place] Bodies Not Reportable 10/21/20 05:29 Hem Pathologist Commnt No 10/21/20 05:29 Sodium 133 mmol/L (137-145) L 10/22/20 03:05 Potassium 4.3 mmol/L (3.6-5.0) 10/22/20 03:05 Chloride 97.7 mmol/L (98-107) L 10/22/20 03:05 Carbon Dioxide 26 mmol/L (22-30) 10/22/20 03:05 Anion Gap 14 mmol/L 10/22/20 03:05 BUN 4 mg/dL (9-20) L 10/22/20 03:05 Creatinine 0.6 mg/dL (0.8-1.3) L 10/22/20 03:05 Estimated GFR > 60 ml/min 10/22/20 03:05 BUN/Creatinine Ratio 7 % 10/22/20 03:05 Glucose 106 mg/dL (75-100) H 10/22/20 03:05 Calcium 8.3 mg/dL (8.4-10.2) L 10/22/20 03:05 Total Bilirubin 0.30 mg/dL (0.1-1.2) 10/20/20 03:34 AST 19 units/L (5-40) 10/20/20 03:34 ALT 14 units/L (7-56) 10/20/20 03:34 Alkaline Phosphatase 89 units/L (35-129) 10/20/20 03:34 C-Reactive Protein 21.20 mg/dL (0.00-1.30) H 10/22/20 09:37 Total Protein 8.4 g/dL (6.3-8.2) H 10/20/20 03:34 Albumin 3.6 g/dL (3.9-5) L 10/20/20 03:34 Albumin/Globulin Ratio 0.8 % 10/20/20 03:34 Lipase 9 units/L (13-60) L 10/20/20 03:34 Urine Color Yellow (Yellow) 10/20/20 08:10 Urine Turbidity Clear (Clear) 10/20/20 08:10 Urine pH 5.0 (5.0-7.0) 10/20/20 08:10 Ur Specific [place] 1.015 (1.003-1.030) 10/20/20 08:10 Urine Protein 30 mg/dl mg/dL (Negative) 10/20/20 08:10 Urine Glucose (UA) Neg mg/dL (Negative) 10/20/20 08:10 Urine Ketones Neg mg/dL (Negative) 10/20/20 08:10 Urine Blood Mod (Negative) 10/20/20 08:10 Urine Nitrite Neg (Negative) 10/20/20 08:10 Urine Bilirubin Neg (Negative) 10/20/20 08:10 Urine Urobilinogen 2.0 mg/dL (<2.0) 10/20/20 08:10 Ur Leukocyte Esterase Neg (Negative) 10/20/20 08:10 Urine WBC (Auto) 2.0 /HPF (0.0-6.0) 10/20/20 08:10 Urine RBC (Auto) 15.0 /HPF (0.0-6.0) 10/20/20 08:10 Urine Mucus Few /HPF 10/20/20 08:10 Blood Type O POSITIVE 10/20/20 16:20 Antibody Screen Negative 10/20/20 16:20 Microbiology: Microbiology 10/21/20 Unknown Abdomen Surgical Culture - Preliminary Hernandez/IV: Voiding Method Urinal IV Catheter Type [Right INT / Saline Lock Forearm] Active Medications - Current Medications Current Medications: Generic Name Dose Route Start Last Admin Trade Name Freq PRN Reason Stop Dose Admin Acetaminophen 650 mg 10/20/20 11:14 Acetaminophen 325 Mg Tab PO Q4H PRN Pain MILD(1-3)/Fever >100.5/JAIMES Heparin Sodium (Porcine) 5,000 unit 10/22/20 10:00 Heparin 5,000 Unit/1 Ml Vial SUB-Q Q12HR CARLTON Hydromorphone HCl 0.25 mg 10/20/20 11:14 10/22/20 03:49 Hydromorphone 1 Mg/1 Ml Inj IV 0.25 mg Q4H PRN Administration Pain, Moderate (4-6) Piperacillin Sod/Tazobactam Sod 4.5 gm in 100 mls @ 200 mls/hr 10/20/20 14:00 10/22/20 05:38 Zosyn/Ns 4.5gm/100ml IV 200 mls/hr Q8H CARLTON Administration Protocol Dextrose/Sodium Chloride 1,000 mls @ 100 mls/hr 10/20/20 16:00 10/22/20 03:56 D5/0.45ns IV 100 mls/hr DIRECT CARLTON Administration Fluconazole 200 mls @ 100 mls/hr 10/21/20 14:00 10/21/20 18:00 Diflucan IV 100 mls/hr Q24HR CARLTON Administration Protocol Morphine Sulfate 4 mg 10/20/20 15:06 10/21/20 23:44 Morphine 4 Mg/1 Ml Inj IV 4 mg Q4H PRN Administration Pain , Severe (7-10) Ondansetron HCl 4 mg 10/20/20 11:14 10/20/20 23:37 Ondansetron 4 Mg/2 Ml Inj IV 4 mg Q8H PRN Administration Nausea And Vomiting Sodium Chloride 10 ml 10/20/20 22:00 10/22/20 08:32 Sodium Chloride 0.9% 10 Ml Flush Syringe IV 10 ml BID CARLTON Administration Sodium Chloride 10 ml 10/20/20 11:14 Sodium Chloride 0.9% 10 Ml Flush Syringe IV PRN PRN LINE FLUSH
[2020-10-22] MEDS: MORPHINE 4 MG/1 ML INJ IV PRN (13:32)
[2020-10-23] MEDS: MORPHINE 4 MG/1 ML INJ IV PRN ×3 (02:38→23:52)
[2020-10-23] MEDS: PIPERACIL/TAZOBACTA 4.5/NS 100 4.5 GM/100 ML VIAL IV SCH ×3 (06:23→22:48)
--- NOTE | 2020-10-23 06:59 | Event Note ---
Date: 10/23/20 POD 3 c/o incisional pain, VSS AFebrile, Zosyn /diflucan day 3/2, surgical cultures pending, tolerating ice chips, path still pending, PT on board, patient needs to mobilize, continue iv fluids and culture directed antibiotics, leave dressing in place, on sub q heparin, will not adv diet until there is recovery of bowel function, leave DARION drain, minimal serosanguinous drainage, drain in abcess cavity. Pt really needs to ambulate. Question of adequacy of RIPE therapy for TB noted, sputum cultures for acid fast, and Covid results pending. ( INF DZ on board)
[2020-10-23] MEDS: HEPARIN 5,000 UNIT/1 ML VIAL SUB-Q SCH ×3 (08:33→22:54)
[2020-10-23] MEDS: FLUCONAZOLE 400 MG 200 ML IV SCH ×2 (08:35→10:00)
[2020-10-23] MEDS: D5W/0.45% NACL 1,000 ML IV SCH (08:37)
--- NOTE | 2020-10-23 10:33 | Progress Note ---
Assessment and Plan Assessment and plan: Appendiceal abscess with rupture- s/p ileocolectomy and drainage of abscess-on IV antibiotics and antifungal medications. ID following Sepsis. Etiology secondary to above. Improving History of tuberculosis. -Chest imaging shows bilateral infiltrates. Patient reportedly completed TB treatment. ID is following. Plan to repeat sputum AFB x3. Patient remains on airborne isolation. COVID-19 test also ordered by ID 10/20/2020. General surgery has been consulted and plans for open appendectomy. Patient reportedly has completed treatment for his tuberculosis. Consult ID for further evaluation. Continue antibiotics of Zosyn. 10/21/2020. Patient is POD 1 s/p illeocecectomy, drainage of abcess. Patient currently complaining of incisional pain and hiccups. Infectious disease follow-up for plan on recent TB and treatment. ? Medical compliance. I discussed the case with general surgeon Dr. Elizabeth who reports that he wants to be responsible for management of pain medications. Continue current IV antibiotics per ID recommendations. 10/22/2020. Has abdominal pain. ID following. On antibiotics. COVID-19 test ordered. 10/23/2020. She has abdominal pain -on pain medications but feels those to be increased. Surgery managing medication dose adjustment. He refuses COVID-19 test today. He remains on isolation for possible TB. Sputum AFB x2 sent History Interval history: Complains of abdominal pain Remains on isolation Refuses COVID-19 test Sputum AFB pending Hospitalist Physical - Physical exam Narrative exam: VITAL SIGNS: Reviewed. GENERAL: Awake HEAD: No signs of head trauma. EYES: Pupils are equal. Extraocular motions intact. MOUTH: Oropharynx is normal. NECK: No adenopathy, no JVD. CHEST: Chest with diminished breath sounds bilaterally. No wheezes, rales, or rhonchi. CARDIAC: normal S1 and S2, without murmurs, gallops, or rubs. ABDOMEN: Soft, tender to palpation diffusely, midline surgical wound covered with dressing. DARION drain with bloody output MUSCULOSKELETAL: No edema NEUROLOGIC EXAM: Alert and oriented x3. No focal neurologic deficits SKIN: No obvious lesions - Constitutional Vitals: Temp Pulse Resp BP Pulse Ox 98.2 F 66 17 118/78 99 10/23/20 07:38 10/23/20 07:38 10/23/20 07:38 10/23/20 07:38 10/23/20 09:22 Results - Labs CBC & Chem 7: 10/22/20 03:05 10/22/20 03:05 Labs: Laboratory Last Values WBC 7.9 K/mm3 (4.5-11.0) 10/22/20 03:05 RBC 3.75 M/mm3 (3.65-5.03) 10/22/20 03:05 Hgb 9.9 gm/dl (11.8-15.2) L 10/22/20 03:05 Hct 30.9 % (35.5-45.6) L 10/22/20 03:05 MCV 82 fl (84-94) L 10/22/20 03:05 MCH 26 pg (28-32) L 10/22/20 03:05 MCHC 32 % (32-34) 10/22/20 03:05 RDW 15.7 % (13.2-15.2) H 10/22/20 03:05 Plt Count 424 K/mm3 (140-440) 10/22/20 03:05 Lymph % (Auto) 6.8 % (13.4-35.0) L 10/22/20 03:05 [place] % (Auto) 11.4 % (0.0-7.3) H 10/22/20 03:05 Eos % (Auto) 0.5 % (0.0-4.3) 10/22/20 03:05 Baso % (Auto) 0.3 % (0.0-1.8) 10/22/20 03:05 Lymph # (Auto) 0.5 K/mm3 (1.2-5.4) L 10/22/20 03:05 [place] # (Auto) 0.9 K/mm3 (0.0-0.8) H 10/22/20 03:05 Eos # (Auto) 0.0 K/mm3 (0.0-0.4) 10/22/20 03:05 Baso # (Auto) 0.0 K/mm3 (0.0-0.1) 10/22/20 03:05 Add Manual Diff Complete 10/21/20 05:29 Total Counted 100 10/21/20 05:29 Seg Neutrophils % 81.0 % (40.0-70.0) H 10/22/20 03:05 Seg Neuts % (Manual) 96.0 % (40.0-70.0) H 10/21/20 05:29 Lymphocytes % (Manual) 3.0 % (13.4-35.0) L 10/21/20 05:29 Metamyelocytes % 1.0 % 10/21/20 05:29 Nucleated RBC % Not Reportable 10/21/20 05:29 Seg Neutrophils # 6.4 K/mm3 (1.8-7.7) 10/22/20 03:05 Seg Neutrophils # Man 14.8 K/mm3 (1.8-7.7) H 10/21/20 05:29 Band Neutrophils # 0.0 K/mm3 10/21/20 05:29 Lymphocytes # (Manual) 0.5 K/mm3 (1.2-5.4) L 10/21/20 05:29 Abs React Lymphs (Man) 0.0 K/mm3 10/21/20 05:29 Monocytes # (Manual) 0.0 K/mm3 (0.0-0.8) 10/21/20 05:29 Eosinophils # (Manual) 0.0 K/mm3 (0.0-0.4) 10/21/20 05:29 Basophils # (Manual) 0.0 K/mm3 (0.0-0.1) 10/21/20 05:29 Metamyelocytes # 0.2 K/mm3 10/21/20 05:29 Myelocytes # 0.0 K/mm3 10/21/20 05:29 Promyelocytes # 0.0 K/mm3 10/21/20 05:29 Blast Cells # 0.0 K/mm3 10/21/20 05:29 WBC Morphology Not Reportable 10/21/20 05:29 Hypersegmented Neuts Not Reportable 10/21/20 05:29 Hyposegmented Neuts Not Reportable 10/21/20 05:29 Hypogranular Neuts Not Reportable 10/21/20 05:29 Smudge Cells Not Reportable 10/21/20 05:29 Toxic Granulation Not Reportable 10/21/20 05:29 Toxic Vacuolation Not Reportable 10/21/20 05:29 Dohle Bodies Not Reportable 10/21/20 05:29 Pelger-Huet Anomaly Not Reportable 10/21/20 05:29 Sarah Rods Not Reportable 10/21/20 05:29 Platelet Estimate Consistent w auto 10/21/20 05:29 Clumped Platelets Not Reportable 10/21/20 05:29 Plt Clumps, EDTA Not Reportable 10/21/20 05:29 Large Platelets Not Reportable 10/21/20 05:29 Giant Platelets Not Reportable 10/21/20 05:29 Platelet Satelliting Not Reportable 10/21/20 05:29 Plt Morphology Comment Not Reportable 10/21/20 05:29 RBC Morphology Normal 10/21/20 05:29 Dimorphic RBCs Not Reportable 10/21/20 05:29 Polychromasia Not Reportable 10/21/20 05:29 Hypochromasia Not Reportable 10/21/20 05:29 Poikilocytosis Not Reportable 10/21/20 05:29 Anisocytosis Not Reportable 10/21/20 05:29 Microcytosis Not Reportable 10/21/20 05:29 Macrocytosis Not Reportable 10/21/20 05:29 Spherocytes Not Reportable 10/21/20 05:29 Pappenheimer Bodies Not Reportable 10/21/20 05:29 Sickle Cells Not Reportable 10/21/20 05:29 Target Cells Not Reportable 10/21/20 05:29 Tear Drop Cells Not Reportable 10/21/20 05:29 Ovalocytes Not Reportable 10/21/20 05:29 Helmet Cells Not Reportable 10/21/20 05:29 [place] Bodies Not Reportable 10/21/20 05:29 [place] Rings Not Reportable 10/21/20 05:29 [place] Cells Not Reportable 10/21/20 05:29 Bite Cells Not Reportable 10/21/20 05:29 Crenated Cell Not Reportable 10/21/20 05:29 Elliptocytes Not Reportable 10/21/20 05:29 Acanthocytes (Spur) Not Reportable 10/21/20 05:29 Rouleaux Not Reportable 10/21/20 05:29 Hemoglobin C Crystals Not Reportable 10/21/20 05:29 Schistocytes Not Reportable 10/21/20 05:29 Malaria parasites Not Reportable 10/21/20 05:29 [place] Bodies Not Reportable 10/21/20 05:29 Hem Pathologist Commnt No 10/21/20 05:29 Sodium 133 mmol/L (137-145) L 10/22/20 03:05 Potassium 4.3 mmol/L (3.6-5.0) 10/22/20 03:05 Chloride 97.7 mmol/L (98-107) L 10/22/20 03:05 Carbon Dioxide 26 mmol/L (22-30) 10/22/20 03:05 Anion Gap 14 mmol/L 10/22/20 03:05 BUN 4 mg/dL (9-20) L 10/22/20 03:05 Creatinine 0.6 mg/dL (0.8-1.3) L 10/22/20 03:05 Estimated GFR > 60 ml/min 10/22/20 03:05 BUN/Creatinine Ratio 7 % 10/22/20 03:05 Glucose 106 mg/dL (75-100) H 10/22/20 03:05 Calcium 8.3 mg/dL (8.4-10.2) L 10/22/20 03:05 Total Bilirubin 0.30 mg/dL (0.1-1.2) 10/20/20 03:34 AST 19 units/L (5-40) 10/20/20 03:34 ALT 14 units/L (7-56) 10/20/20 03:34 Alkaline Phosphatase 89 units/L (35-129) 10/20/20 03:34 C-Reactive Protein 21.20 mg/dL (0.00-1.30) H 10/22/20 09:37 Total Protein 8.4 g/dL (6.3-8.2) H 10/20/20 03:34 Albumin 3.6 g/dL (3.9-5) L 10/20/20 03:34 Albumin/Globulin Ratio 0.8 % 10/20/20 03:34 Lipase 9 units/L (13-60) L 10/20/20 03:34 Procalcitonin 1.08 ng/mL (<0.15) 10/22/20 09:37 Urine Color Yellow (Yellow) 10/20/20 08:10 Urine Turbidity Clear (Clear) 10/20/20 08:10 Urine pH 5.0 (5.0-7.0) 10/20/20 08:10 Ur Specific [place] 1.015 (1.003-1.030) 10/20/20 08:10 Urine Protein 30 mg/dl mg/dL (Negative) 10/20/20 08:10 Urine Glucose (UA) Neg mg/dL (Negative) 10/20/20 08:10 Urine Ketones Neg mg/dL (Negative) 10/20/20 08:10 Urine Blood Mod (Negative) 10/20/20 08:10 Urine Nitrite Neg (Negative) 10/20/20 08:10 Urine Bilirubin Neg (Negative) 10/20/20 08:10 Urine Urobilinogen 2.0 mg/dL (<2.0) 10/20/20 08:10 Ur Leukocyte Esterase Neg (Negative) 10/20/20 08:10 Urine WBC (Auto) 2.0 /HPF (0.0-6.0) 10/20/20 08:10 Urine RBC (Auto) 15.0 /HPF (0.0-6.0) 10/20/20 08:10 Urine Mucus Few /HPF 10/20/20 08:10 Blood Type O POSITIVE 10/20/20 16:20 Antibody Screen Negative 10/20/20 16:20 Hernandez/IV: Voiding Method Urinal IV Catheter Type [Right INT / Saline Lock Forearm] Active Medications - Current Medications Current Medications: Generic Name Dose Route Start Last Admin Trade Name Freq PRN Reason Stop Dose Admin Acetaminophen 650 mg 10/20/20 11:14 Acetaminophen 325 Mg Tab PO Q4H PRN Pain MILD(1-3)/Fever >100.5/JAIMES Heparin Sodium (Porcine) 5,000 unit 10/22/20 10:00 10/22/20 21:45 Heparin 5,000 Unit/1 Ml Vial SUB-Q 5,000 unit Q12HR CARLTON Administration Hydromorphone HCl 0.25 mg 10/20/20 11:14 10/22/20 21:46 Hydromorphone 1 Mg/1 Ml Inj IV 0.25 mg Q4H PRN Administration Pain, Moderate (4-6) Piperacillin Sod/Tazobactam Sod 4.5 gm in 100 mls @ 200 mls/hr 10/20/20 14:00 10/23/20 06:23 Zosyn/Ns 4.5gm/100ml IV 200 mls/hr Q8H CARLTON Administration Protocol Dextrose/Sodium Chloride 1,000 mls @ 100 mls/hr 10/20/20 16:00 10/23/20 08:37 D5/0.45ns IV 100 mls/hr DIRECT CARLTON Administration Fluconazole 200 mls @ 100 mls/hr 10/21/20 14:00 10/23/20 08:35 Diflucan IV 100 mls/hr Q24HR CARLTON Administration Protocol Morphine Sulfate 4 mg 10/20/20 15:06 10/23/20 06:23 Morphine 4 Mg/1 Ml Inj IV 4 mg Q4H PRN Administration Pain , Severe (7-10) Ondansetron HCl 4 mg 10/20/20 11:14 10/20/20 23:37 Ondansetron 4 Mg/2 Ml Inj IV 4 mg Q8H PRN Administration Nausea And Vomiting Sodium Chloride 10 ml 10/20/20 22:00 10/22/20 21:46 Sodium Chloride 0.9% 10 Ml Flush Syringe IV 10 ml BID CARLTON Administration Sodium Chloride 10 ml 10/20/20 11:14 Sodium Chloride 0.9% 10 Ml Flush Syringe IV PRN PRN LINE FLUSH
[2020-10-23] MEDS: HYDROmorphone 1 MG/1 ML INJ IV PRN ×3 (12:33→20:22)
--- NOTE | 2020-10-23 12:34 | Progress Note ---
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 Patient was started in RIPE plus B6 via DOT by [facility] with reportedly completion of therapy. Unfortunately, patient was readmitted on 10/20/2020 secondary to severe right lower quadrant pain for 2 weeks: #Sepsis: resolved, likely secondary to appendiceal abscess +/- partially treated TB #Ruptured appendicitis with abscess: Status post exploratory laparotomy, right ileocecectomy, drainage of abscess, intraoperative cultures on 10/20/2020. #?Partially treated pulmonary tuberculosis: Diagnosed in August 2019, treated with RIPE plus B6 via DOT by [facility] with reportedly non completion of therapy. On repeat chest x-ray shows persistent reticulonodular infiltrates with cavitary opacity in the upper lobes. CT abdomen shows tree-in-bud's parenchymal opacity in the bilateral bases. Spoke with sister today who was not sure if he completed antiTB therapy and reported he has been coughing. I talked to patient too and sister mentioned the cough he is now reporting he has been coughing up etienne sputum for a while. Recommendations: -refusing SARS Cov-2 PCR testing -continue airborne isolation -sputum for AFBx 3 -continue Zosyn IV for now -continue fluconazole 400 mg. once a day -follow-up OR cultures Will follow. Marifer Charles MD Infectious Diseases [employer] Technician [facility] [place] [facility] ([facility]) M [phone] O [phone] Subjective Date of service: 10/23/20 Principal diagnosis: bilateral pneumonia Interval history: Remains on room air, no desaturations, no fever. Objective - Exam Narrative Exam: Physical exam deferred to minimize COVID-19 transmission during pandemic. ER and internal medicine physical examination notes reviewed. - Constitutional Vitals: Vital Signs Temp Pulse Resp BP Pulse Ox 98.2 F 66 17 118/78 99 10/23/20 07:38 10/23/20 07:38 10/23/20 07:38 10/23/20 07:38 10/23/20 09:22 Temperature -Last 24 Hours Temperature 98.2 F Temperature 98.3 F Temperature 98.5 F Temperature 98.4 F - Labs CBC & Chem 7: 10/22/20 03:05 10/22/20 03:05
--- NOTE | 2020-10-23 14:38 | Event Note ---
Date: 10/23/20 I spoke with Pathology, specimen /colon and appendix contain multiple granuloma very suggestive of active TB, however acid fast stains are pending , recc isolation for this patient until sputum acid fast stains are back. I will attempt to contact Hospitalist.
[2020-10-23] MEDS: ONDANSETRON 4 MG/2 ML INJ IV PRN (23:53)
[2020-10-24] MEDS: PIPERACIL/TAZOBACTA 4.5/NS 100 4.5 GM/100 ML VIAL IV SCH ×3 (05:33→21:21)
--- NOTE | 2020-10-24 09:15 | Event Note ---
Date: 10/24/20 POD 4 VSS AF, Zosyn 4 diflucan 3, patient had BM this am, drain removed, maria antonia taken out of skin incision, wound clean no infection, need to wean iv narcotics and transition to PO pain meds, decrease iv fluids, mobilize, chemical dvt prophylaxis, sputum acid fast pending along with covid. Pt has been somewhat non compliant with regard to refusing things, I have spoken to him about all this. I suspect patient has active TB in view of preliminary path finding. Continue isolation. will adv diet as tolerated, may be able to go home Wednesday depending on clinical progress, abd film pending.
[2020-10-24] MEDS ORDERED: oxyCODONE /ACETAMINOPHEN 5-325MG TAB PO PRN (09:17)
[2020-10-24] MEDS: FLUCONAZOLE 400 MG 200 ML IV SCH (09:25)
[2020-10-24] MEDS: HEPARIN 5,000 UNIT/1 ML VIAL SUB-Q SCH ×2 (09:26→21:33)
[2020-10-24] MEDS: MORPHINE 4 MG/1 ML INJ IV PRN (09:26)
--- NOTE | 2020-10-24 09:57 | Progress Note ---
Assessment and Plan Assessment and plan: Appendiceal abscess with rupture- s/p ileocolectomy and drainage of abscess-on IV antibiotics and antifungal medications. ID following Sepsis. Etiology secondary to above. Improving History of tuberculosis. -Chest imaging shows bilateral infiltrates. Patient reportedly completed TB treatment. ID is following. Plan to repeat sputum AFB x3. Patient remains on airborne isolation. COVID-19 test also ordered by ID 10/20/2020. General surgery has been consulted and plans for open appendectomy. Patient reportedly has completed treatment for his tuberculosis. Consult ID for further evaluation. Continue antibiotics of Zosyn. 10/21/2020. Patient is POD 1 s/p illeocecectomy, drainage of abcess. Patient currently complaining of incisional pain and hiccups. Infectious disease follow-up for plan on recent TB and treatment. ? Medical compliance. I discussed the case with general surgeon Dr. Elizabeth who reports that he wants to be responsible for management of pain medications. Continue current IV antibiotics per ID recommendations. 10/22/2020. Has abdominal pain. ID following. On antibiotics. COVID-19 test ordered. 10/23/2020. She has abdominal pain -on pain medications but feels those to be increased. Surgery managing medication dose adjustment. He refuses COVID-19 test today. He remains on isolation for possible TB. Sputum AFB x2 sent 10/24. He did not complete TB treatment as per infection department RN. Prelim report of surgical result shows granulomas. Awaiting sputum AFB result. Still refuses covid test History Interval history: Still refuses COVID test despite explaining why he needs the test He did not complete TB treatment as per infection nurse. Will need full treatment - defer to ID Started on clear liquid diet. Hospitalist Physical - Physical exam Narrative exam: VITAL SIGNS: Reviewed. GENERAL: Awake HEAD: No signs of head trauma. EYES: Pupils are equal. Extraocular motions intact. MOUTH: Oropharynx is normal. NECK: No adenopathy, no JVD. CHEST: Chest with diminished breath sounds bilaterally. No wheezes, rales, or rhonchi. CARDIAC: normal S1 and S2, without murmurs, gallops, or rubs. ABDOMEN: Soft, tender to palpation diffusely, midline surgical wound covered with dressing. DARION drain with bloody output MUSCULOSKELETAL: No edema NEUROLOGIC EXAM: Alert and oriented x3. No focal neurologic deficits SKIN: No obvious lesions - Constitutional Vitals: Temp Pulse Resp BP Pulse Ox 98.5 F 64 17 130/91 99 10/24/20 04:54 10/24/20 04:54 10/24/20 04:54 10/24/20 04:54 10/24/20 09:46 Results - Labs CBC & Chem 7: 10/22/20 03:05 10/22/20 03:05 Labs: Laboratory Last Values WBC 7.9 K/mm3 (4.5-11.0) 10/22/20 03:05 RBC 3.75 M/mm3 (3.65-5.03) 10/22/20 03:05 Hgb 9.9 gm/dl (11.8-15.2) L 10/22/20 03:05 Hct 30.9 % (35.5-45.6) L 10/22/20 03:05 MCV 82 fl (84-94) L 10/22/20 03:05 MCH 26 pg (28-32) L 10/22/20 03:05 MCHC 32 % (32-34) 10/22/20 03:05 RDW 15.7 % (13.2-15.2) H 10/22/20 03:05 Plt Count 424 K/mm3 (140-440) 10/22/20 03:05 Lymph % (Auto) 6.8 % (13.4-35.0) L 10/22/20 03:05 Park % (Auto) 11.4 % (0.0-7.3) H 10/22/20 03:05 Eos % (Auto) 0.5 % (0.0-4.3) 10/22/20 03:05 Baso % (Auto) 0.3 % (0.0-1.8) 10/22/20 03:05 Lymph # (Auto) 0.5 K/mm3 (1.2-5.4) L 10/22/20 03:05 Park # (Auto) 0.9 K/mm3 (0.0-0.8) H 10/22/20 03:05 Eos # (Auto) 0.0 K/mm3 (0.0-0.4) 10/22/20 03:05 Baso # (Auto) 0.0 K/mm3 (0.0-0.1) 10/22/20 03:05 Add Manual Diff Complete 10/21/20 05:29 Total Counted 100 10/21/20 05:29 Seg Neutrophils % 81.0 % (40.0-70.0) H 10/22/20 03:05 Seg Neuts % (Manual) 96.0 % (40.0-70.0) H 10/21/20 05:29 Lymphocytes % (Manual) 3.0 % (13.4-35.0) L 10/21/20 05:29 Metamyelocytes % 1.0 % 10/21/20 05:29 Nucleated RBC % Not Reportable 10/21/20 05:29 Seg Neutrophils # 6.4 K/mm3 (1.8-7.7) 10/22/20 03:05 Seg Neutrophils # Man 14.8 K/mm3 (1.8-7.7) H 10/21/20 05:29 Band Neutrophils # 0.0 K/mm3 10/21/20 05:29 Lymphocytes # (Manual) 0.5 K/mm3 (1.2-5.4) L 10/21/20 05:29 Abs React Lymphs (Man) 0.0 K/mm3 10/21/20 05:29 Monocytes # (Manual) 0.0 K/mm3 (0.0-0.8) 10/21/20 05:29 Eosinophils # (Manual) 0.0 K/mm3 (0.0-0.4) 10/21/20 05:29 Basophils # (Manual) 0.0 K/mm3 (0.0-0.1) 10/21/20 05:29 Metamyelocytes # 0.2 K/mm3 10/21/20 05:29 Myelocytes # 0.0 K/mm3 10/21/20 05:29 Promyelocytes # 0.0 K/mm3 10/21/20 05:29 Blast Cells # 0.0 K/mm3 10/21/20 05:29 WBC Morphology Not Reportable 10/21/20 05:29 Hypersegmented Neuts Not Reportable 10/21/20 05:29 Hyposegmented Neuts Not Reportable 10/21/20 05:29 Hypogranular Neuts Not Reportable 10/21/20 05:29 Smudge Cells Not Reportable 10/21/20 05:29 Toxic Granulation Not Reportable 10/21/20 05:29 Toxic Vacuolation Not Reportable 10/21/20 05:29 Dohle Bodies Not Reportable 10/21/20 05:29 Pelger-Huet Anomaly Not Reportable 10/21/20 05:29 Sarah Rods Not Reportable 10/21/20 05:29 Platelet Estimate Consistent w auto 10/21/20 05:29 Clumped Platelets Not Reportable 10/21/20 05:29 Plt Clumps, EDTA Not Reportable 10/21/20 05:29 Large Platelets Not Reportable 10/21/20 05:29 Giant Platelets Not Reportable 10/21/20 05:29 Platelet Satelliting Not Reportable 10/21/20 05:29 Plt Morphology Comment Not Reportable 10/21/20 05:29 RBC Morphology Normal 10/21/20 05:29 Dimorphic RBCs Not Reportable 10/21/20 05:29 Polychromasia Not Reportable 10/21/20 05:29 Hypochromasia Not Reportable 10/21/20 05:29 Poikilocytosis Not Reportable 10/21/20 05:29 Anisocytosis Not Reportable 10/21/20 05:29 Microcytosis Not Reportable 10/21/20 05:29 Macrocytosis Not Reportable 10/21/20 05:29 Spherocytes Not Reportable 10/21/20 05:29 Pappenheimer Bodies Not Reportable 10/21/20 05:29 Sickle Cells Not Reportable 10/21/20 05:29 Target Cells Not Reportable 10/21/20 05:29 Tear Drop Cells Not Reportable 10/21/20 05:29 Ovalocytes Not Reportable 10/21/20 05:29 Helmet Cells Not Reportable 10/21/20 05:29 [place] Bodies Not Reportable 10/21/20 05:29 [place] Rings Not Reportable 10/21/20 05:29 Follett Cells Not Reportable 10/21/20 05:29 Bite Cells Not Reportable 10/21/20 05:29 Crenated Cell Not Reportable 10/21/20 05:29 Elliptocytes Not Reportable 10/21/20 05:29 Acanthocytes (Spur) Not Reportable 10/21/20 05:29 Rouleaux Not Reportable 10/21/20 05:29 Hemoglobin C Crystals Not Reportable 10/21/20 05:29 Schistocytes Not Reportable 10/21/20 05:29 Malaria parasites Not Reportable 10/21/20 05:29 Chalino Bodies Not Reportable 10/21/20 05:29 Hem Pathologist Commnt No 10/21/20 05:29 Sodium 133 mmol/L (137-145) L 10/22/20 03:05 Potassium 4.3 mmol/L (3.6-5.0) 10/22/20 03:05 Chloride 97.7 mmol/L (98-107) L 10/22/20 03:05 Carbon Dioxide 26 mmol/L (22-30) 10/22/20 03:05 Anion Gap 14 mmol/L 10/22/20 03:05 BUN 4 mg/dL (9-20) L 10/22/20 03:05 Creatinine 0.6 mg/dL (0.8-1.3) L 10/22/20 03:05 Estimated GFR > 60 ml/min 10/22/20 03:05 BUN/Creatinine Ratio 7 % 10/22/20 03:05 Glucose 106 mg/dL (75-100) H 10/22/20 03:05 Calcium 8.3 mg/dL (8.4-10.2) L 10/22/20 03:05 Total Bilirubin 0.30 mg/dL (0.1-1.2) 10/20/20 03:34 AST 19 units/L (5-40) 10/20/20 03:34 ALT 14 units/L (7-56) 10/20/20 03:34 Alkaline Phosphatase 89 units/L (35-129) 10/20/20 03:34 C-Reactive Protein 21.20 mg/dL (0.00-1.30) H 10/22/20 09:37 Total Protein 8.4 g/dL (6.3-8.2) H 10/20/20 03:34 Albumin 3.6 g/dL (3.9-5) L 10/20/20 03:34 Albumin/Globulin Ratio 0.8 % 10/20/20 03:34 Lipase 9 units/L (13-60) L 10/20/20 03:34 Procalcitonin 1.08 ng/mL (<0.15) 10/22/20 09:37 Urine Color Yellow (Yellow) 10/20/20 08:10 Urine Turbidity Clear (Clear) 10/20/20 08:10 Urine pH 5.0 (5.0-7.0) 10/20/20 08:10 Ur Specific [place] 1.015 (1.003-1.030) 10/20/20 08:10 Urine Protein 30 mg/dl mg/dL (Negative) 10/20/20 08:10 Urine Glucose (UA) Neg mg/dL (Negative) 10/20/20 08:10 Urine Ketones Neg mg/dL (Negative) 10/20/20 08:10 Urine Blood Mod (Negative) 10/20/20 08:10 Urine Nitrite Neg (Negative) 10/20/20 08:10 Urine Bilirubin Neg (Negative) 10/20/20 08:10 Urine Urobilinogen 2.0 mg/dL (<2.0) 10/20/20 08:10 Ur Leukocyte Esterase Neg (Negative) 10/20/20 08:10 Urine WBC (Auto) 2.0 /HPF (0.0-6.0) 10/20/20 08:10 Urine RBC (Auto) 15.0 /HPF (0.0-6.0) 10/20/20 08:10 Urine Mucus Few /HPF 10/20/20 08:10 Blood Type O POSITIVE 10/20/20 16:20 Antibody Screen Negative 10/20/20 16:20 Microbiology: Microbiology 10/20/20 Unknown Abdomen Anaerobic Culture - Preliminary 10/21/20 Unknown Abdomen Surgical Culture - Preliminary Gram Negative Jovi Hernandez/IV: Voiding Method Urinal IV Catheter Type [Right INT / Saline Lock Forearm] Active Medications - Current Medications Current Medications: Generic Name Dose Route Start Last Admin Trade Name Freq PRN Reason Stop Dose Admin Acetaminophen 650 mg 10/20/20 11:14 Acetaminophen 325 Mg Tab PO Q4H PRN Pain MILD(1-3)/Fever >100.5/JAIMES Heparin Sodium (Porcine) 5,000 unit 10/22/20 10:00 10/24/20 09:26 Heparin 5,000 Unit/1 Ml Vial SUB-Q Not Given Q12HR CARLTON Piperacillin Sod/Tazobactam Sod 4.5 gm in 100 mls @ 200 mls/hr 10/20/20 14:00 10/24/20 05:33 Zosyn/Ns 4.5gm/100ml IV 200 mls/hr Q8H CARLTON Administration Protocol Fluconazole 200 mls @ 100 mls/hr 10/21/20 14:00 10/24/20 09:25 Diflucan IV 100 mls/hr Q24HR CARLTON Administration Protocol Morphine Sulfate 2 mg 10/24/20 10:00 Morphine 2 Mg/1 Ml Inj IV Q4H PRN Pain, Moderate (4-6) Ondansetron HCl 4 mg 10/20/20 11:14 10/23/20 23:53 Ondansetron 4 Mg/2 Ml Inj IV 4 mg Q8H PRN Administration Nausea And Vomiting Oxycodone/Acetaminophen 1 tab 10/24/20 09:17 Oxycodone /Acetaminophen 5-325mg Tab PO Q4H PRN Pain, Moderate (4-6) Sodium Chloride 10 ml 10/20/20 22:00 10/23/20 22:51 Sodium Chloride 0.9% 10 Ml Flush Syringe IV 10 ml BID CARLTON Administration Sodium Chloride 10 ml 10/20/20 11:14 Sodium Chloride 0.9% 10 Ml Flush Syringe IV PRN PRN LINE FLUSH
--- NOTE | 2020-10-24 10:17 | XRay Report ---
ABDOMEN 1 VIEW INDICATION / CLINICAL INFORMATION: evaluate for illeus versus SBO. COMPARISON: CT from 10/20/2020 FINDINGS: TUBES / LINES: None. BOWEL GAS PATTERN: Mild gaseous distention of the small bowel, measuring up to 3.7 cm. FREE AIR / EXTRALUMINAL GAS: None. ADDITIONAL FINDINGS: No significant additional findings. IMPRESSION: Mild gaseous distention of the small bowel diffusely throughout the abdomen. Findings favor postsurgi caden ileus, though developing small bowel obstruction is not excluded. Signer Name: Ronal Collins MD Signed: 10/24/2020 10:12 AM Workstation Name: [id number]
--- NOTE | 2020-10-24 10:56 | Progress Note ---
Assessment and Plan Cultures: OR culture gram-negative bacilli Assessment: 30 years old male with 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 Patient was started in RIPE plus B6 via DOT by [facility] with reportedly completion of therapy. Unfortunately, patient was readmitted on 10/20/2020 secondary to severe right lower quadrant pain for 2 weeks: #Sepsis: resolved, likely secondary to appendiceal abscess +/- partially treated TB #Ruptured appendicitis with abscess: Status post exploratory laparotomy, right ileocecectomy, drainage of abscess, intraoperative cultures on 10/20/2020. #?Partially treated pulmonary tuberculosis: Diagnosed in August 2019, treated with RIPE plus B6 via DOT by [facility] with reportedly non comple tion of therapy. On repeat chest x-ray shows persistent reticulonodular infiltrates with cavitary opacity in the upper lobes. CT abdomen shows tree-in-bud's parenchymal opacity in the bilateral bases. Spoke with sister today who was not sure if he completed antiTB therapy and reported he has been coughing. I talked to patient too and sister mentioned the cough he is now reporting he has been coughing up etienne sputum for a while. Recommendations: -refused SARS Cov-2 PCR testing I spoke with patient, he does not want nasopharynx testing -continue airborne isolation -sputum for AFBx 3 -pending -continue Zosyn IV for now, OR cultures growing gram-negative bacilli -Stop fluconazole -no yeast isolated -follow-up OR cultures -Anticipate to restart RIPE + B6 Will follow. Marifer Charles MD Infectious Diseases Physiotherapy Aide [facility] [phone] O [phone] Subjective Date of service: 10/24/20 Principal diagnosis: bilateral pneumonia Interval history: Remains on room air, no desaturations, no fever. Objective - Exam Narrative Exam: General appearance: Alert in NAD Eyes: anicteric sclerae, moist conjunctivae; no lid-lag; PERRLA HENT: Normocephalic, Atraumatic; normal external ears, nares open, oropharynx clear Neck: supple, tracheal midline, no JVD Lungs: CTA, with normal respiratory effort and no intercostal retractions CV: RRR no murmur Abdomen: Soft, mild tenderness, midline surgical wound with bouchra, Extremities: No edema Skin: Multiple tattoos Psych: no agitated Neuro: alert and oriented x 3. Moving all extermities - Constitutional Vitals: Vital Signs Temp Pulse Resp BP Pulse Ox 98.5 F 64 17 130/91 99 10/24/20 04:54 10/24/20 04:54 10/24/20 04:54 10/24/20 04:54 10/24/20 09:46 Temperature -Last 24 Hours Temperature 98.5 F Temperature 98.2 F Temperature 98.5 F Temperature 98.4 F Temperature 98.4 F - Labs CBC & Chem 7: 10/22/20 03:05 10/22/20 03:05
[2020-10-24] MEDS: ONDANSETRON 4 MG/2 ML INJ IV PRN ×2 (12:34→17:21)
[2020-10-24] MEDS: MORPHINE 2 MG/1 ML INJ IV PRN ×3 (12:34→21:18)
[2020-10-25] MEDS: MORPHINE 2 MG/1 ML INJ IV PRN ×2 (01:41→05:40)
[2020-10-25] MEDS: ONDANSETRON 4 MG/2 ML INJ IV PRN ×2 (02:00→11:05)
[2020-10-25] MEDS: PIPERACIL/TAZOBACTA 4.5/NS 100 4.5 GM/100 ML VIAL IV SCH (05:40)
[2020-10-25] MEDS ORDERED: MORPHINE 4 MG/1 ML INJ IV PRN (06:24)
--- NOTE | 2020-10-25 06:30 | Event Note ---
Date: 10/25/20 POD 5 VSS AFebrile, cultures from abcess noted/ Ecoli, sens to zosyn, day 5 zosyn, diflucan d/cornelio, sputums negative for acid fast organisms x 3, will adv diet as tolerated, need to wean off iv narcotics and transition to oral pain meds. Duration of antibiotics per INF DZ, and decision for RIPE therapy also ID decision. Formal Path report still pending. Needs mobilization, limited narcotics, I will adv diet. Latasha to stay for one week, can be removed as outpatient. Need for isolation per INF DZ reccs.
[2020-10-25] MEDS ORDERED: MORPHINE 2 MG/1 ML INJ IV PRN (06:35)
--- NOTE | 2020-10-25 09:56 | Progress Note ---
Assessment and Plan Cultures: OR culture 10/21/2020 - MDR E coli resistant to amp, FQ, tetracycline and bactrim Assessment: 30 years old male with 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 Patient was started in RIPE plus B6 via DOT by [facility] with reportedly completion of therapy. Unfortunately, patient was readmitted on 10/20/2020 secondary to severe right lower quadrant pain for 2 weeks: #Sepsis: resolved, likely secondary to appendiceal abscess +/- partially treated TB. #Ruptured appendicitis with abscess: Status post exploratory laparotomy, right ileocecectomy, drainage of abscess, intraoperative cultures on 10/20/2020. #?Partially treated pulmonary tuberculosis: Diagnosed in August 2019, treated with RIPE plus B6 via DOT by [facility] with reportedly non completion of therapy. On repeat chest x-ray shows persistent reticulonodular infiltrates with cavitary opacity in the upper lobes. CT abdomen shows tree-in-bud's parenchymal opacity in the bilateral bases. Spoke with sister who was not sure if he completed antiTB therapy and reported he has been coughing. IC confirmed with family patient moved to [place] and did not complete TB treatement. I talked to patient too and sister mentioned the cough he is now reporting he has been coughing up etienne sputum for a while. AFB smear sputum x 3 negative. Recommendations: -restart RIPE + B6 -stop Zosyn -start ceftriaxone D5 of 6 -needs f/u with his [facility] -refused SARS Cov-2 PCR testing -continue airborne isolation -follow-up OR cultures -f/u OR path stains Dr Rodriguez rounding this weekend Will follow. Marifer Charles MD Infectious Diseases Solar Technician [facility] M [phone] O [phone] Subjective Date of service: 10/25/20 Principal diagnosis: bilateral pneumonia Objective - Constitutional Vitals: Vital Signs Temp Pulse Resp BP Pulse Ox 97.5 F L 70 18 122/81 98 10/25/20 05:48 10/25/20 05:48 10/25/20 05:48 10/25/20 05:48 10/25/20 08:21 Temperature -Last 24 Hours Temperature 97.5 F Temperature 97.7 F Temperature 98.6 F Temperature 98.4 F - Labs CBC & Chem 7: 10/22/20 03:05 10/22/20 03:05
[2020-10-25] MEDS ORDERED: cefTRIAXone/NS 2 GM/100 ML 2 GM/100 ML BAG IV SCH (10:00)
[2020-10-25] MEDS ORDERED: rifAMPin 300 MG CAP PO SCH (10:15)
[2020-10-25] MEDS ORDERED: ETHAMBUTOL 400 MG TAB PO SCH (11:00)
[2020-10-25] MEDS ORDERED: PYRIDOXINE 50 MG TAB PO SCH (11:00)
[2020-10-25] MEDS ORDERED: ISONIAZID 300 MG TAB PO SCH (11:00)
[2020-10-25] MEDS ORDERED: PYRAZINAMIDE 500 MG TAB PO SCH (11:00)
[2020-10-25] MEDS: HEPARIN 5,000 UNIT/1 ML VIAL SUB-Q SCH (11:01)
--- NOTE | 2020-10-25 12:05 | Progress Note ---
Assessment and Plan Assessment and plan: Appendiceal abscess with rupture- s/p ileocolectomy and drainage of abscess-on IV antibiotics and antifungal medications. ID following Sepsis. Etiology secondary to above. Improving History of tuberculosis. -Chest imaging shows bilateral infiltrates. Patient reportedly completed TB treatment. ID is following. Plan to repeat sputum AFB x3. Patient remains on airborne isolation. COVID-19 test also ordered by ID 10/20/2020. General surgery has been consulted and plans for open appendectomy. Patient reportedly has completed treatment for his tuberculosis. Consult ID for further evaluation. Continue antibiotics of Zosyn. 10/21/2020. Patient is POD 1 s/p illeocecectomy, drainage of abcess. Patient currently complaining of incisional pain and hiccups. Infectious disease follow-up for plan on recent TB and treatment. ? Medical compliance. I discussed the case with general surgeon Dr. Elizabeth who reports that he wants to be responsible for management of pain medications. Continue current IV antibiotics per ID recommendations. 10/22/2020. Has abdominal pain. ID following. On antibiotics. COVID-19 test ordered. 10/23/2020. She has abdominal pain -on pain medications but feels those to be increased. Surgery managing medication dose adjustment. He refuses COVID-19 test today. He remains on isolation for possible TB. Sputum AFB x2 sent 10/24. He did not complete TB treatment as per infection department RN. Prelim report of surgical result shows granulomas. Awaiting sputum AFB result. Still refuses covid test 10/25. On antibiotics for ecoli (surgical culture) - on ceftriaxone. Sputum AFB x3 is negative. he will need to complete TB treatment. rn manager will contact health department to get a schedule for him prior to DC. History Interval history: He is tolerating diet. Passing normal stools rn manager will contact [facility] to arrange outpatient DOT for TB. Surgical culture is growing ecoli - antibiotics switched to ceftriaxone Hospitalist Physical - Physical exam Narrative exam: VITAL SIGNS: Reviewed. GENERAL: Awake HEAD: No signs of head trauma. EYES: Pupils are equal. Extraocular motions intact. MOUTH: Oropharynx is normal. NECK: No adenopathy, no JVD. CHEST: Chest with diminished breath sounds bilaterally. No wheezes, rales, or rhonchi. CARDIAC: normal S1 and S2, without murmurs, gallops, or rubs. ABDOMEN: Soft, slight tenderness to palpation around midline surgical wound covered with dressing. MUSCULOSKELETAL: No edema NEUROLOGIC EXAM: Alert and oriented x3. No focal neurologic deficits SKIN: No obvious lesions - Constitutional Vitals: Temp Pulse Resp BP Pulse Ox 97.5 F L 70 18 122/81 98 10/25/20 05:48 10/25/20 05:48 10/25/20 05:48 10/25/20 05:48 10/25/20 08:21 Results - Labs CBC & Chem 7: 10/22/20 03:05 10/22/20 03:05 Labs: Laboratory Last Values WBC 7.9 K/mm3 (4.5-11.0) 10/22/20 03:05 RBC 3.75 M/mm3 (3.65-5.03) 10/22/20 03:05 Hgb 9.9 gm/dl (11.8-15.2) L 10/22/20 03:05 Hct 30.9 % (35.5-45.6) L 10/22/20 03:05 MCV 82 fl (84-94) L 10/22/20 03:05 MCH 26 pg (28-32) L 10/22/20 03:05 MCHC 32 % (32-34) 10/22/20 03:05 RDW 15.7 % (13.2-15.2) H 10/22/20 03:05 Plt Count 424 K/mm3 (140-440) 10/22/20 03:05 Lymph % (Auto) 6.8 % (13.4-35.0) L 10/22/20 03:05 [place] % (Auto) 11.4 % (0.0-7.3) H 10/22/20 03:05 Eos % (Auto) 0.5 % (0.0-4.3) 10/22/20 03:05 Baso % (Auto) 0.3 % (0.0-1.8) 10/22/20 03:05 Lymph # (Auto) 0.5 K/mm3 (1.2-5.4) L 10/22/20 03:05 [place] # (Auto) 0.9 K/mm3 (0.0-0.8) H 10/22/20 03:05 Eos # (Auto) 0.0 K/mm3 (0.0-0.4) 10/22/20 03:05 Baso # (Auto) 0.0 K/mm3 (0.0-0.1) 10/22/20 03:05 Add Manual Diff Complete 10/21/20 05:29 Total Counted 100 10/21/20 05:29 Seg Neutrophils % 81.0 % (40.0-70.0) H 10/22/20 03:05 Seg Neuts % (Manual) 96.0 % (40.0-70.0) H 10/21/20 05:29 Lymphocytes % (Manual) 3.0 % (13.4-35.0) L 10/21/20 05:29 Metamyelocytes % 1.0 % 10/21/20 05:29 Nucleated RBC % Not Reportable 10/21/20 05:29 Seg Neutrophils # 6.4 K/mm3 (1.8-7.7) 10/22/20 03:05 Seg Neutrophils # Man 14.8 K/mm3 (1.8-7.7) H 10/21/20 05:29 Band Neutrophils # 0.0 K/mm3 10/21/20 05:29 Lymphocytes # (Manual) 0.5 K/mm3 (1.2-5.4) L 10/21/20 05:29 Abs React Lymphs (Man) 0.0 K/mm3 10/21/20 05:29 Monocytes # (Manual) 0.0 K/mm3 (0.0-0.8) 10/21/20 05:29 Eosinophils # (Manual) 0.0 K/mm3 (0.0-0.4) 10/21/20 05:29 Basophils # (Manual) 0.0 K/mm3 (0.0-0.1) 10/21/20 05:29 Metamyelocytes # 0.2 K/mm3 10/21/20 05:29 Myelocytes # 0.0 K/mm3 10/21/20 05:29 Promyelocytes # 0.0 K/mm3 10/21/20 05:29 Blast Cells # 0.0 K/mm3 10/21/20 05:29 WBC Morphology Not Reportable 10/21/20 05:29 Hypersegmented Neuts Not Reportable 10/21/20 05:29 Hyposegmented Neuts Not Reportable 10/21/20 05:29 Hypogranular Neuts Not Reportable 10/21/20 05:29 Smudge Cells Not Reportable 10/21/20 05:29 Toxic Granulation Not Reportable 10/21/20 05:29 Toxic Vacuolation Not Reportable 10/21/20 05:29 Dohle Bodies Not Reportable 10/21/20 05:29 Pelger-Huet Anomaly Not Reportable 10/21/20 05:29 Sarah Rods Not Reportable 10/21/20 05:29 Platelet Estimate Consistent w auto 10/21/20 05:29 Clumped Platelets Not Reportable 10/21/20 05:29 Plt Clumps, EDTA Not Reportable 10/21/20 05:29 Large Platelets Not Reportable 10/21/20 05:29 Giant Platelets Not Reportable 10/21/20 05:29 Platelet Satelliting Not Reportable 10/21/20 05:29 Plt Morphology Comment Not Reportable 10/21/20 05:29 RBC Morphology Normal 10/21/20 05:29 Dimorphic RBCs Not Reportable 10/21/20 05:29 Polychromasia Not Reportable 10/21/20 05:29 Hypochromasia Not Reportable 10/21/20 05:29 Poikilocytosis Not Reportable 10/21/20 05:29 Anisocytosis Not Reportable 10/21/20 05:29 Microcytosis Not Reportable 10/21/20 05:29 Macrocytosis Not Reportable 10/21/20 05:29 Spherocytes Not Reportable 10/21/20 05:29 Pappenheimer Bodies Not Reportable 10/21/20 05:29 Sickle Cells Not Reportable 10/21/20 05:29 Target Cells Not Reportable 10/21/20 05:29 Tear Drop Cells Not Reportable 10/21/20 05:29 Ovalocytes Not Reportable 10/21/20 05:29 Helmet Cells Not Reportable 10/21/20 05:29 Downing-Hephzibah Bodies Not Reportable 10/21/20 05:29 [place] Rings Not Reportable 10/21/20 05:29 Kyra Cells Not Reportable 10/21/20 05:29 Bite Cells Not Reportable 10/21/20 05:29 Crenated Cell Not Reportable 10/21/20 05:29 Elliptocytes Not Reportable 10/21/20 05:29 Acanthocytes (Spur) Not Reportable 10/21/20 05:29 Rouleaux Not Reportable 10/21/20 05:29 Hemoglobin C Crystals Not Reportable 10/21/20 05:29 Schistocytes Not Reportable 10/21/20 05:29 Malaria parasites Not Reportable 10/21/20 05:29 Chalino Bodies Not Reportable 10/21/20 05:29 Hem Pathologist Commnt No 10/21/20 05:29 Sodium 133 mmol/L (137-145) L 10/22/20 03:05 Potassium 4.3 mmol/L (3.6-5.0) 10/22/20 03:05 Chloride 97.7 mmol/L (98-107) L 10/22/20 03:05 Carbon Dioxide 26 mmol/L (22-30) 10/22/20 03:05 Anion Gap 14 mmol/L 10/22/20 03:05 BUN 4 mg/dL (9-20) L 10/22/20 03:05 Creatinine 0.6 mg/dL (0.8-1.3) L 10/22/20 03:05 Estimated GFR > 60 ml/min 10/22/20 03:05 BUN/Creatinine Ratio 7 % 10/22/20 03:05 Glucose 106 mg/dL (75-100) H 10/22/20 03:05 Calcium 8.3 mg/dL (8.4-10.2) L 10/22/20 03:05 Total Bilirubin 0.30 mg/dL (0.1-1.2) 10/20/20 03:34 AST 19 units/L (5-40) 10/20/20 03:34 ALT 14 units/L (7-56) 10/20/20 03:34 Alkaline Phosphatase 89 units/L (35-129) 10/20/20 03:34 C-Reactive Protein 21.20 mg/dL (0.00-1.30) H 10/22/20 09:37 Total Protein 8.4 g/dL (6.3-8.2) H 10/20/20 03:34 Albumin 3.6 g/dL (3.9-5) L 10/20/20 03:34 Albumin/Globulin Ratio 0.8 % 10/20/20 03:34 Lipase 9 units/L (13-60) L 10/20/20 03:34 Procalcitonin 1.08 ng/mL (<0.15) 10/22/20 09:37 Urine Color Yellow (Yellow) 10/20/20 08:10 Urine Turbidity Clear (Clear) 10/20/20 08:10 Urine pH 5.0 (5.0-7.0) 10/20/20 08:10 Ur Specific [place] 1.015 (1.003-1.030) 10/20/20 08:10 Urine Protein 30 mg/dl mg/dL (Negative) 10/20/20 08:10 Urine Glucose (UA) Neg mg/dL (Negative) 10/20/20 08:10 Urine Ketones Neg mg/dL (Negative) 10/20/20 08:10 Urine Blood Mod (Negative) 10/20/20 08:10 Urine Nitrite Neg (Negative) 10/20/20 08:10 Urine Bilirubin Neg (Negative) 10/20/20 08:10 Urine Urobilinogen 2.0 mg/dL (<2.0) 10/20/20 08:10 Ur Leukocyte Esterase Neg (Negative) 10/20/20 08:10 Urine WBC (Auto) 2.0 /HPF (0.0-6.0) 10/20/20 08:10 Urine RBC (Auto) 15.0 /HPF (0.0-6.0) 10/20/20 08:10 Urine Mucus Few /HPF 10/20/20 08:10 AFB Identification 10/23/20 13:00 Blood Type O POSITIVE 10/20/20 16:20 Antibody Screen Negative 10/20/20 16:20 Microbiology: Microbiology 10/20/20 Unknown Abdomen Anaerobic Culture - Final 10/21/20 Unknown Abdomen Surgical Culture - Final Escherichia Coli Hernandez/IV: Voiding Method Urinal IV Catheter Type [Right INT / Saline Lock Forearm] Active Medications - Current Medications Current Medications: Generic Name Dose Route Start Last Admin Trade Name Freq PRN Reason Stop Dose Admin Acetaminophen 650 mg 10/20/20 11:14 Acetaminophen 325 Mg Tab PO Q4H PRN Pain MILD(1-3)/Fever >100.5/JAIMES Ethambutol HCl 800 mg 10/25/20 11:00 Ethambutol 400 Mg Tab PO QDAY CARLTON Heparin Sodium (Porcine) 5,000 unit 10/22/20 10:00 10/25/20 11:01 Heparin 5,000 Unit/1 Ml Vial SUB-Q Not Given Q12HR [facility] Ceftriaxone Sodium 2 gm in 100 mls @ 200 mls/hr 10/25/20 10:00 10/25/20 11:25 Rocephin/Ns 2 Gm/100 Ml IV 200 mls/hr Q24HR CARLTON Administration Protocol Isoniazid 300 mg 10/25/20 11:00 Isoniazid 300 Mg Tab PO QDAY [facility] Morphine Sulfate 1 mg 10/25/20 06:35 10/25/20 11:05 Morphine 2 Mg/1 Ml Inj IV 1 mg Q4H PRN Administration Pain , Severe (7-10) Ondansetron HCl 4 mg 10/20/20 11:14 10/25/20 11:05 Ondansetron 4 Mg/2 Ml Inj IV 4 mg Q8H PRN Administration Nausea And Vomiting Oxycodone/Acetaminophen 1 tab 10/24/20 09:17 Oxycodone /Acetaminophen 5-325mg Tab PO Q4H PRN Pain, Moderate (4-6) Pyrazinamide 1,000 mg 10/25/20 11:00 Pyrazinamide 500 Mg Tab PO QDAY [facility] Pyridoxine HCl 50 mg 10/25/20 11:00 Pyridoxine 50 Mg Tab PO QDAY [facility] Rifampin 600 mg 10/25/20 10:15 Rifampin 300 Mg Cap PO QDAY CARLTON Sodium Chloride 10 ml 10/20/20 22:00 10/25/20 11:05 Sodium Chloride 0.9% 10 Ml Flush Syringe IV 10 ml BID CARLTON Administration Sodium Chloride 10 ml 10/20/20 11:14 Sodium Chloride 0.9% 10 Ml Flush Syringe IV PRN PRN LINE FLUSH Nutrition/Malnutrition Assess - Dietary Evaluation Nutrition/Malnutrition Findings: Nutrition Notes Start: 10/25/20 11:05 Freq: Status: Active Protocol: Document 10/25/20 11:05 EN (Rec: 10/25/20 11:12 EN [email or web address]) Co-Sign 10/25/20 11:05 MK Nutrition Notes Need for Assessment generated from: LOS Initial or Follow up Assessment Other Pertinent Diagnosis Ruptured Appendicitis, Partially treated TB Current Diet Regular Labs/Tests Reviewed Pertinent Medications Zofran Height 5 ft 10 in Weight 81.9 kg [place] Body Weight (kg) 75.45 BMI 25.9 Intake Prior to Admission Poor Weight Status Overweight Subjective/Other Information Pt screened for LOS. Pt reports not eating well for 2 days DIRECTOR OF COUNSELING d/t decreased appetite and diarrhea. Pt is unsure of any recent wt loss and UBW. Pt reports that his appetite is improving and that his diarrhea has resolved. Pt denies N/V/D but chart indicates nausea and vomiting yesterday. Pt consumed 50% of breakfast this morning. Pt is declining ONS at this time. Percent of energy/protein needs met: 49%/67% Burn Absent Trauma Absent GI Symptoms None Food Allergy No Current % PO Fair (50-74%) Minimum of two criteria No physical signs of malnutrition #1 Nutrition Diagnosis Inadequate oral intake Etiology Decreased appetite and GI symptoms As Evidenced by Signs and Symptoms Pt consuming 50% of meals Is patient on ventilator? No Is Patient Ambulatory and/or Out of Bed Yes REE-(Stephen-St. or-ambulatory/OOB) [ 2327.325 [id number]] Calculation [facility]ations [facility] Additional Notes Protein: 0.8-1g/kg (66-82g) Fluid: 1ml/kcal Nutrition Intervention Change Diet Order: Continue current diet Goal #1 Meet at least 75% of energy and protein needs via PO Anticipated Discharge Needs: Regular diet Follow-Up By: 10/29/20 Additional Comments F/u for intakes, appetite, nausea and vomiting
[2020-10-25 14:33] VITALS: BP 125/83
--- NOTE | 2020-10-25 16:33 | Discharge Summary ---
Providers - Providers Date of Admission: 10/20/20 11:14 Date of discharge: 10/25/20 Attending physician: BOBY SAVAGE 10/20/20 08:33 Consult to Physician [CONS] Urgent Comment: Consulting Provider: KIRSTIE PABON Physician Instructions: Reason For Exam: acute appendicitis 10/20/20 11:21 Consult to Physician [CONS] Routine Comment: Consulting Provider: DANIELLE EDGE Physician Instructions: Reason For Exam: appendicitis, previous TB 10/21/20 12:56 Consult to Infection Control Nurse [CONS] Stat Reason For Exam: Please confirm completion of anti-TB therapy by HD 10/22/20 05:42 Physical Therapy Evaluation and Treat [CONS] Routine Comment: Reason For Exam: needs post op mobilization Weight bearing status?: Full wt bearing Assistive devices?: No Primary care physician: SCREENING UNIT REGISTERED NURSE Hospitalization Condition: Stable Hospital course: 30-year-old male with a past medical history of pulmonary tuberculosis diagnosed here in September 2019 and subsequently completed course of treatment presents to the hospital with complaints of right lower quadrant pain x2 week. The last week patient has had intermittent right lower quadrant throbbing abdominal pain rated 5/10 intensity. Pain worse with palpation and movement. No alleviating factors. Patient had one episode of vomiting yesterday. He denies fever or previous abdominal surgeries. Patient was seen at an urgent care several days ago in [place] who suggested that he might have appendicitis that he should go to the hospital for evaluation. However, patient did not come to the hospital until today. CT reveals probable perforated appendix with phlegmon,versus mucocele. 10/20/2020. General surgery has been consulted and plans for open appendectomy. Patient reportedly has completed treatment for his tuberculosis. Consult ID for further evaluation. Continue antibiotics of Zosyn. 10/21/2020. Patient is POD 1 s/p illeocecectomy, drainage of abcess. Patient currently complaining of incisional pain and hiccups. Infectious disease follow-up for plan on recent TB and treatment. ? Medical compliance. I discussed the case with general surgeon Dr. Elizabeth who reports that he wants to be responsible for management of pain medications. Continue current IV antibiotics per ID recommendations. 10/22/2020. Has abdominal pain. ID following. On antibiotics. COVID-19 test ordered. 10/23/2020. She has abdominal pain -on pain medications but feels those to be increased. Surgery managing medication dose adjustment. He refuses COVID-19 test today. He remains on isolation for possible TB. Sputum AFB x2 sent 10/24. He did not complete TB treatment as per infection department RN. Prelim report of surgical result shows granulomas. Awaiting sputum AFB result. Still refuses covid test 10/25. On antibiotics for ecoli (surgical culture) - on ceftriaxone. Sputum AFB x3 is negative. he will need to complete TB treatment. print traffic manager will contact [facility] department to get a schedule for him prior to DC. [facility] has contacted and patient has an appointment with [facility] on Wednesday. He will be discharged home today. he will follow up with general surgery Disposition: DC- TO HOME OR SELFCARE - Discharge Diagnoses (1) Appendix abscess Status: Acute (2) Ruptured appendix Status: Acute Core Measure Documentation - Palliative Care Palliative Care/ Comfort Measures: Not Applicable - Core Measures Any of the following diagnoses?: none Exam - Physical Exam Narrative exam: VITAL SIGNS: Reviewed. GENERAL: Awake HEAD: No signs of head trauma. EYES: Pupils are equal. Extraocular motions intact. MOUTH: Oropharynx is normal. NECK: No adenopathy, no JVD. CHEST: Chest with diminished breath sounds bilaterally. No wheezes, rales, or rhonchi. CARDIAC: normal S1 and S2, without murmurs, gallops, or rubs. ABDOMEN: Soft, Midline surgical wound covered with dressing. MUSCULOSKELETAL: No edema NEUROLOGIC EXAM: Alert and oriented x3. No focal neurologic deficits SKIN: No obvious lesions - Constitutional Vitals: Temp Pulse Resp BP Pulse Ox 98.5 F 62 24 125/83 99 10/25/20 12:26 10/25/20 12:26 10/25/20 12:26 10/25/20 12:26 10/25/20 12:26 Plan Activity: no restrictions Diet: regular Additional Instructions: You have an appointment with [facility] on Wednesday. Ensure you follow up for management of TB. Follow up with genral surgery for staple removal in a week Follow up with: OSCAR SPANN MD [Primary Care Provider] - 7 Days KIRSTIE PABON MD [Staff Physician] - 7 Days
== END 2020-10-25 17:18 | disposition home or self-care (01) | DRG 853 ==
LOC: ED 01:57 → 3A 09:50 → 4A 10:22 → OBSVTOIN 11:14 → 4A 11:34 → 3B 15:47 → 3B-SURG 10-22 13:02 → 3A 10-23 20:55
PROVIDERS: ADMIT Hospitalist; ATTEND Internal Medicine
PROC: 0DBH0ZZ Excision of Cecum, Open Approach (ICD-10-PCS; principal; 2020-10-20)
PROC: 0D9 Gastrointestinal System, Drainage (ICD-10-PCS; 2020-10-20)
DX: A41.9 Sepsis, unspecified organism (principal); K35.33 Acute appendicitis with perforation, localized peritonitis, and gangrene, with abscess; F17.200 Nicotine dependence, unspecified, uncomplicated; Z86.11 Personal history of tuberculosis; D64.9 Anemia, unspecified; B96.20 Unspecified Escherichia coli [E. coli] as the cause of diseases classified elsewhere
CPT/HCPCS: 36415; 71045; 74018; 74177; 80048; 80053; 81001; 83690; 84145; 85007; 85025; 86140; 86850; 86900; 86901; 87075; 87076; 87116; 87186; 88112; 88307; 88312; 94760; 96374; 96375; 96376; G0378; J0330; J0690; J0696; J1170; J1450; J1644; J1885; J2060; J2270; J2405; J2543; J2704; J2710; J2765; J3230; J7030; J7120; Q9967